=== PATIENT | female | born 2000 | race Caucasian/White ===

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

== ENCOUNTER 2021-07-25 14:01 | Emergency (ER) | payer MEDICAID ==
[~2021-07-25] VITALS: Ht 165.1 cm; Wt 111.0 kg
[~2021-07-25 14:01] MED LIST changes: +AZIT250T12 PO; +IBUP-1780 PO; -SULF1TAB35 PO; +SULF1TAB38 PO
[2021-07-25] MEDS ORDERED: ONDANSETRON 4 MG (ZOFRAN) ORAL DISSOLVE TAB PO STA (14:09)
[2021-07-25] MEDS ORDERED: morphine INJ 10 MG/ML 1ML (SYR OR VIAL) IM STA (14:09)
[2021-07-25] MEDS ORDERED: SULF1TAB38 PO (15:04)
--- NOTE | 2021-07-25 15:04 | ED General ---
General Chief Complaint: Skin/Wound Problems Stated Complaint: LT ARMPIT CYST Nursing Triage Note: PT AMBULATE TO ROOM FS WITH C/O CYST ON LEFT AXILLARY Source of Information: Caregiver History of Present Illness Date Seen by Provider: Jul 25, 2021 Time Seen by Provider: 14:45 Initial Comments Patient is a 21-year-old female who presents with recurrent soft tissue boil of her left axilla is starting 7 days ago. Boil started to drain spontaneously last evening. She has been seen in the ED before for abscesses in the same location. She is not diabetic. She has no other symptoms or complaints. Timing/Duration: 1 Week Severity: Mild Modifying Factors: improves with Other Associated Systoms: Other Allergies and Home Medications Allergies Coded Allergies: Penicillins (Verified Allergy, Unknown, 04/25/20) Patient Home Medication List Home Medication List Reviewed: Yes Azithromycin (Azithromycin) 250 Mg Tablet, 250 MG PO UD Prescribed by: JOAQUÍN YORK on 12/07/20 1257 Buspirone HCl (Buspirone HCl) 10 Mg Tablet, 10 MG PO BID, (Reported) Entered as Reported by: HARRY SHERIDAN on 06/23/162250 Cephalexin (Keflex) 500 Mg Capsule, 500 MG PO BID Prescribed by: THAI COOPER on 04/25/20 232 Clonazepam (Klonopin) 0.5 Mg Tablet, 0.5 MG PO BID, (Reported) Entered as Reported by: HARRY SHERIDAN on 06/23/162234 Clonidine HCl (Clonidine HCl) 0.2 Mg Tablet, 0.2 MG PO HS, (Reported) Entered as Reported by: HARRY SHERIDAN on 06/23/162234 Dextroamphetamine/Amphetamine (Adderall Xr 30 mg Capsule) 30 Mg Cap.er.24h, 30 MG PO DAILY, (Reported) Entered as Reported by: HARRY SHERIDAN on 06/23/162234 Divalproex Sodium (Depakote ER) 500 Mg Tab.er.24h, 1,000 MG PO HS, (Reported) Entered as Reported by: HARRY SHERIDAN on 06/23/162234 Ibuprofen (Ibuprofen) 600 Mg Tablet, 600 MG PO Q8H PRN for PAIN-MILD Prescribed by: JOAQUÍN YORK on 09/24/19 1554 Ibuprofen (Ibuprofen) 800 Mg Tablet, 800 MG PO Q8H PRN for PAIN Prescribed by: JOAQUÍN YORK on 12/07/20 1257 Risperidone (Risperidone) 0.5 Mg Tablet, 0.5 MG PO BID, (Reported) Entered as Reported by: HARRY SHERIDAN on 06/23/16 2251 Sulfamethoxazole/Trimethoprim (Bactrim Ds Tablet) 1 Each Tablet, 1 EACH PO BID Prescribed by: JOAQUÍN YORK on 09/07/20 2350 Review of Systems Review of Systems Constitutional: see HPI Skin: see HPI Past Wsdtqmd-Xezezo-Rpuqmx Hx Patient Social History Tobacco Use?: No Smoking Status: Never a Smoker Smokeless Tobacco Frequency: Never a User Use of E-Cig and/or Vaping dev: Yes E-Cig or Vaping type used: Nicotine Use of E-Cig and/or Vaping Kilo: Current Everyday User Substance use?: No Alcohol Use?: Yes Alcohol Frequency: Once in a while Pt feels they are or have been: No Immunizations Up To Date Tetanus Booster (TDap): Less than 5yrs PED Vaccines UTD: Yes Seasonal Allergies Seasonal Allergies: No Past Medical History Surgeries: Yes Cystectomy Respiratory: No Cardiac: No Neurological: Yes Seizure Disorder Reproductive Disorders: No Genitourinary: No Gastrointestinal: No Musculoskeletal: No Endocrine: No HEENT: No Cancer: No Psychosocial: Yes ADD/ADHD, Anxiety Integumentary: No Blood Disorders: No Physical Exam Vital Signs Vital Signs - First Documented 07/25/21 14:05 Temp 35.7 Pulse 98 Resp 16 B/P (MAP) 130/78 (95) O2 Delivery Room Air Capillary Refill : Less Than 3 Seconds Height, Weight, BMI Height: 5'5" Weight: 160lbs. oz. 72.808236vi; 40.00 BMI Method:Estimated General Appearance: No Apparent Distress, WD/WN Skin: Other (Left axilla, partially decompressed 2 cm skin boil with minimal drainage, no cellulitis) Focused Exam Sepsis Stage: Ruled Out Progress/Results/Core Measures Suspected Sepsis SIRS Temperature: Pulse: 98 Respiratory Rate: 16 Blood Pressure 130 /78 Mean: 95 Results/Orders My Orders Orders - LUCI WHITTEN DO Morphine Injection (Morphine Injection (07/25/21 14:09) Ondansetron Oral Dissolve Tab (Zofran (07/25/21 14:09) Urine Bedside - [facility] [place] (07/25/21 14:33) Vital Signs/I&O 07/25/21 14:05 Temp 35.7 Pulse 98 Resp 16 B/P (MAP) 130/78 (95) O2 Delivery Room Air Capillary Refill : Less Than 3 Seconds Blood Pressure Mean: 95 Departure Communication (Admissions) Morphine given in a single stab incision was made to assist with drainage. No further pus was noted to drain from abscess at this time. Will place patient on antibiotics with instruction to follow-up with PCP for surgical referral. Return precautions reviewed. Impression Primary Impression: Axillary abscess Disposition: HOME, SELF-CARE Condition: Stable Departure-Patient Inst. Decision time for Depature: 15:03 Referrals: MANPREET ARCE MD (PCP/Family) Primary Care Physician Patient Instructions: Boil (DC) Add. Discharge Instructions: Please take ibuprofen for pain and Bactrim for treatment of abscess. Apply warm compresses and follow-up with your PCP for further management and consideration of surgical referral. All discharge instructions reviewed with patient and/or family. Voiced understanding. Scripts Sulfamethoxazole/Trimethoprim (Bactrim Ds Tablet) 1 Each Tablet 1 EACH PO BID, #14 TAB Prov: LUCI WHITTEN DO 07/25/21 LUCI WHITTEN DO Jul 25, 2021 15:04
[2021-07-25 15:25] VITALS: BP 149/87
== END 2021-07-25 15:45 | disposition home or self-care (01) ==
LOC: EDUNIT# 14:01 → ER FS 14:03
DX: L02.412 Cutaneous abscess of left axilla (principal); F17.290 Nicotine dependence, other tobacco product, uncomplicated; F41.9 Anxiety disorder, unspecified; G40.909 Epilepsy, unspecified, not intractable, without status epilepticus; Z79.899 Other long term (current) drug therapy
CPT/HCPCS: 84703; 99282; 99283

== ENCOUNTER → 2021-09-24 | Outpatient (CLI) | payer MEDICAID ==
[2021-09-24 17:49] LABS: HEMATOCRIT 38 % (35-52); HEMOGLOBIN 12.1 g/dL (11.5-16.0); MEAN CORPUSCULAR HEMOGLOBIN 25 pg (25-34); MEAN CORPUSCULAR HGB CONC 32 g/dL (32-36); MEAN CORPUSCULAR VOLUME 76 fL (80-99); MEAN PLATELET VOLUME 9.4 fL (9.0-12.2); PLATELET COUNT 307 10^3/uL (130-400); WHITE BLOOD COUNT 8.6 10^3/uL (4.3-11.0)
== END ==
LOC: LAB FS 17:08
PROVIDERS: ATTEND Family Medicine
DX: Z34.91 Encounter for supervision of normal pregnancy, unspecified, first trimester (principal); Z3A.10 10 weeks gestation of pregnancy
CPT/HCPCS: 36415; 80055; 85027; 86703; 86762; 86780; 87088

== ENCOUNTER → 2021-10-23 | Outpatient (CLI) | payer MEDICAID | LOC: LAB FS 14:53 | PROVIDERS: ATTEND Family Medicine | DX: O21.9 Vomiting of pregnancy, unspecified (principal); Z3A.12 12 weeks gestation of pregnancy | CPT/HCPCS: 36415; 87491; 87591 ==

== ENCOUNTER 2021-11-04 14:08 | Emergency (ER) | payer MEDICAID ==
[~2021-11-04] VITALS: Ht 162 cm; Wt 104.0 kg
[2021-11-04] MEDS ORDERED: NS IV 1000 ML 1,000 ML IV SCH (14:45)
--- NOTE | 2021-11-04 14:47 | ED GU-Female ---
General Chief Complaint: OB < 20 WEEKS Stated Complaint: 14 WKS/VAG BLEEDING AND PAIN Nursing Triage Note: PT AMB TO RM 6 PT STATES STARTED HAVING PAIN IN L LOWER ABD 8/10. PT STATES HAS SOME VAGINAL SPOTTING STARTED THIS AM. PT IS APPROX 14 WEEKS . STARTED SUDDENLY DENIES SX OF UTI History of Present Illness Date Seen by Provider: Nov 04, 2021 Time Seen by Provider: 14:13 Initial Comments 21-year-old female reports pink vaginal discharge with urination and wiping since approximately 1130 today. The discharge has not been significant enough to require a pad and has not been bright red. She has had intermittent left flank and back pain. She currently rates her pain minimal. She has not taken Tylenol or any other medicines for her symptoms. She does report having intercourse this morning. She has had [address] Schwab she is unsure if she has had hCG levels checked, she was assured the fetus was in the uterus and they had good heartbeat. This is her third , she has had miscarriages at age 15 and 17, both approximately 12-14 weeks gestation. She is taking a vitamin daily. and Promethazine for nausea and vomiting. Per lab, patient is A- blood type. She received Rhogam with her miscarriage. Timing/Duration: this morning Severity/Quality: mild Radiation: LLQ, left flank Activities at Onset: sexual activity Prior Genitourinary Problems: none Sexual [place] History: less than 2 months ago, single partner Associated Symptoms: abdominal pain; No dysuria, No fever/chills, No loss of bladder control; lower back pain, nausea/vomiting (associated with ); No polyuria, No swelling, No syncope, No urinary frequency Allergies and Home Medications Allergies Coded Allergies: Penicillins (Verified Allergy, Unknown, 04/25/20) Patient Home Medication List Home Medication List Reviewed: Yes Azithromycin (Azithromycin) 250 Mg Tablet, 250 MG PO UD Prescribed by: JOAQUÍN YORK on 12/07/20 1257 Buspirone HCl (Buspirone HCl) 10 Mg Tablet, 10 MG PO BID, (Reported) Entered as Reported by: HARRY SHERIDAN on 06/23/16 2251 Cephalexin (Keflex) 500 Mg Capsule, 500 MG PO BID Prescribed by: THAI COOPER on 04/25/20 2321 Clonazepam (Klonopin) 0.5 Mg Tablet, 0.5 MG PO BID, (Reported) Entered as Reported by: HARRY SHERIDAN on 06/23/162234 Clonidine HCl (Clonidine HCl) 0.2 Mg Tablet, 0.2 MG PO HS, (Reported) Entered as Reported by: HARRY SHERIDAN on 06/23/162234 Dextroamphetamine/Amphetamine (Adderall Xr 30 mg Capsule) 30 Mg Cap.er.24h, 30 MG PO DAILY, (Reported) Entered as Reported by: HARRY SHERIDAN on 06/23/162234 Divalproex Sodium (Depakote ER) 500 Mg Tab.er.24h, 1,000 MG PO HS, (Reported) Entered as Reported by: HARRY SHERIDAN on 06/23/162234 Ibuprofen (Ibuprofen) 600 Mg Tablet, 600 MG PO Q8H PRN for PAIN-MILD Prescribed by: JOAQUÍN YORK on 09/24/19 1554 Ibuprofen (Ibuprofen) 800 Mg Tablet, 800 MG PO Q8H PRN for PAIN Prescribed by: JOAQUÍN YORK on 12/07/20 1257 Risperidone (Risperidone) 0.5 Mg Tablet, 0.5 MG PO BID, (Reported) Entered as Reported by: HARRY SHERIDAN on 06/23/16 2251 Sulfamethoxazole/Trimethoprim (Bactrim Ds Tablet) 1 Each Tablet, 1 EACH PO BID Prescribed by: JOAQUÍN YORK on 09/07/20 2350 Sulfamethoxazole/Trimethoprim (Bactrim Ds Tablet) 1 Each Tablet, 1 EACH PO BID Prescribed by: LUCI WHITTEN on 07/25/21 1504 Review of Systems Review of Systems Constitutional: no symptoms reported, see HPI Gastrointestinal: LLQ, abdominal pain Genitourinary: see HPI, discharge (pink), flank pain (left) : Yes Expected Date of Delivery: May 06, 2022 LMP: Jul 09, 2021 All Other Systemes Reviewed Negative Unless Noted: Yes Past Hlxbggu-Vrjwtm-Tuidxf Hx Immunizations Up To Date Tetanus Booster (TDap): Less than 5yrs PED Vaccines UTD: Yes Seasonal Allergies Seasonal Allergies: No Past Medical History Surgeries: Yes Cystectomy Respiratory: No Cardiac: No Neurological: Yes Seizure Disorder Expected Date of Delivery: May 06, 2022 Last Menstrual Period: Jul 10, 2021 Hx : 3 Hx Para: 0 Hx Total # of Abortions (Sp): 2 Reproductive Disorders: No Genitourinary: No Gastrointestinal: No Musculoskeletal: No Endocrine: No HEENT: No Cancer: No Psychosocial: Yes ADD/ADHD, Anxiety Integumentary: No Blood Disorders: No Family Medical History Reviewed and Corrections made Physical Exam Vital Signs Vital Signs - First Documented 11/04/21 14:13 Temp 35.9 Pulse 84 Resp 18 B/P (MAP) 122/62 (82) Pulse Ox 100 Capillary Refill : Less Than 3 Seconds Height, Weight, BMI Height: 5'5" Weight: 160lbs. oz. 72.474454zs; 39.00 BMI Method:Estimated General Appearance: WD/WN, no apparent distress HEENT: normal ENT inspection, TMs normal, pharynx normal Neck: non-tender, full range of motion, supple, normal inspection Cardiovascular: normal peripheral pulses, regular rate, rhythm Respiratory: chest non-tender, lungs clear, normal breath sounds Gastrointestinal: normal bowel sounds, non tender, soft Back: normal inspection, CVA tenderness (L) Neurologic/Psychiatric: no motor/sensory deficits, alert, normal mood/affect, oriented x 3 Skin: normal color, warm/dry heart tones by doppler at 150-160s. Progress/Results/Core Measures Suspected Sepsis SIRS Temperature: Pulse: 84 Respiratory Rate: 18 Laboratory Tests 11/04/21 15:50: White Blood Count 8.5 Blood Pressure 122 /62 Mean: 82 Laboratory Tests 11/04/21 15:50: Creatinine 0.62, Platelet Count 229, Total Bilirubin 0.3 Results/Orders Lab Results Laboratory Tests Test 11/04/21 15:47 11/04/21 15:50 Range/Units Urine Color YELLOW Urine Clarity SL CLOUDY Urine pH 6.5 5-9 Urine Specific [place] 1.015 L 1.016-1.022 Urine Protein NEGATIVE NEGATIVE Urine Glucose (UA) NEGATIVE NEGATIVE Urine Ketones 1+ H NEGATIVE Urine Nitrite NEGATIVE NEGATIVE Urine Bilirubin NEGATIVE NEGATIVE Urine Urobilinogen 2.0 < = 1.0 MG/DL Urine Leukocyte Esterase 1+ H NEGATIVE Urine RBC (Auto) NEGATIVE NEGATIVE Urine RBC NONE /HPF Urine WBC 2-5 /HPF Urine Squamous Epithelial Cells 2-5 /HPF Urine Crystals PRESENT H /LPF Urine Calcium Oxalate Crystals FEW H /LPF Urine Bacteria FEW H /HPF Urine Casts NONE /LPF Urine Mucus SMALL H /LPF Urine Culture Indicated YES White Blood Count 8.5 4.3-11.0 10^3/uL Red Blood Count 4.48 3.80-5.11 10^6/uL Hemoglobin 11.6 11.5-16.0 g/dL Hematocrit 35 35-52 % Mean Corpuscular Volume 78 L 80-99 fL Mean Corpuscular Hemoglobin 26 25-34 pg Mean Corpuscular Hemoglobin Concent 33 32-36 g/dL Red Cell Distribution Width 15.2 H 10.0-14.5 % Platelet Count 229 130-400 10^3/uL Mean Platelet Volume 9.3 9.0-12.2 fL Immature Granulocyte % (Auto) 0 % Neutrophils (%) (Auto) 80 H 42-75 % Lymphocytes (%) (Auto) 15 12-44 % Monocytes (%) (Auto) 4 0-12 % Eosinophils (%) (Auto) 1 0-10 % Basophils (%) (Auto) 0 0-10 % Neutrophils # (Auto) 6.7 1.8-7.8 10^3/uL Lymphocytes # (Auto) 1.3 1.0-4.0 10^3/uL Monocytes # (Auto) 0.4 0.0-1.0 10^3/uL Eosinophils # (Auto) 0.1 0.0-0.3 10^3/uL Basophils # (Auto) 0.0 0.0-0.1 10^3/uL Immature Granulocyte # (Auto) 0.0 0.0-0.1 10^3/uL Sodium Level 138 135-145 MMOL/L Potassium Level 3.6 3.6-5.0 MMOL/L Chloride Level 107 98-107 MMOL/L Carbon Dioxide Level 20 L 21-32 MMOL/L Anion Gap 11 5-14 MMOL/L Blood Urea Nitrogen 6 L 7-18 MG/DL Creatinine 0.62 0.60-1.30 MG/DL Estimat Glomerular Filtration Rate 131 BUN/Creatinine Ratio 10 Glucose Level 91 70-105 MG/DL Calcium Level 9.1 8.5-10.1 MG/DL Corrected Calcium 9.4 8.5-10.1 MG/DL Total Bilirubin 0.3 0.1-1.0 MG/DL Aspartate Amino Transf (AST/SGOT) 11 5-34 U/L Alanine Aminotransferase (ALT/SGPT) 6 0-55 U/L Alkaline Phosphatase 75 40-136 U/L Total Protein 6.4 6.4-8.2 GM/DL Albumin 3.6 3.2-4.5 GM/DL Human Chorionic Gonadotropin, Quant 19721 H <5 MIU/ML My Orders Orders - AMANDA VILLALTA Cbc With Automated Diff (11/04/21 14:21) Hcg,Quantitative (11/04/21 14:21) Comprehensive Metabolic Panel (11/04/21 14:21) Ua Culture If Indicated (11/04/21 14:21) Urine Bedside (11/04/21 14:21) Ed Iv/Invasive Line Start (11/04/21 14:37) Ns Iv 1000 Ml (Sodium Chloride 0.9%) (11/04/21 14:45) Urine Culture (11/04/21 15:47) Nitrofurantoin Capsule,Macro (Macrobid C (11/04/21 16:55) Vital Signs/I&O 11/04/21 14:13 Temp 35.9 Pulse 84 Resp 18 B/P (MAP) 122/62 (82) Pulse Ox 100 Capillary Refill : Less Than 3 Seconds Blood Pressure Mean: 82 Progress Note : Time: 14:13 Progress Note Patient seen and evaluated, will obtain labs, normal saline 1 L per IV and continue to monitor. With good heart tones, the likelihood of needing an ultrasound are slim at this time. 1500 patient unable to provide urine sample, taking ice chips. No vaginal bleeding. 1520 UA obtained. No complaints from patient, denies any vaginal bleeding with urination or wiping. 1620 discussed UA results, discharge instructions reviewed. Labs reviewed. Will be on vaginal rest until follow-up with OB doctor. Return precautions discussed. Departure Impression Primary Impression: Qualified Codes: Z3A.14 - 14 weeks gestation of Additional Impression: Spotting affecting in second trimester Disposition: 01 HOME, SELF-CARE Condition: Improved Departure-Patient Inst. Decision time for Depature: 16:15 Referrals: RANDOLPH SCHWAB MD (PCP/Family) Primary Care Physician Patient Instructions: Bleeding in Early (DC), Urinary Tract Infection, Adult (DC) Add. Discharge Instructions: Take antibiotics as prescribed, [facility]. Follow-up with Dr. Schwab if symptoms are not improving or worsen. Increase water intake, 16 ounces every 2 hours while awake. Empty bladder every 2 hours, while awake. Drink 1 cup of cranberry juice or eat one cup of fresh blueberries daily. You may take Tylenol 650 mg every 6-8 hours as needed for pain. Complete vaginal rest until follow-up with Dr. Schwab. Return to the emergency department for increased vaginal spotting, fever, or other new urgent condition. All discharge instructions reviewed with patient and/or family. Voiced understanding. Scripts Nitrofurantoin Macrocrystal (Nitrofurantoin) 100 Mg Capsule 100 MG PO BID, #14 CAP 0 Refills Prov: AMANDA VILLALTA 11/04/21 Copy Copies To 1: RANDOLPH SCHWAB MD, AMY ARNP Nov 04, 2021 14:47
[2021-11-04 15:57] LABS: BASOPHILS % (AUTO) 0 % (0-10); EOSINOPHILS # (AUTO) 0.1 10^3/uL (0.0-0.3); EOSINOPHILS % (AUTO) 1 % (0-10); HEMATOCRIT 35 % (35-52); HEMOGLOBIN 11.6 g/dL (11.5-16.0); LYMPHOCYTES # (AUTO) 1.3 10^3/uL (1.0-4.0); LYMPHOCYTES % (AUTO) 15 % (12-44); MEAN CORPUSCULAR HEMOGLOBIN 26 pg (25-34); MEAN CORPUSCULAR HGB CONC 33 g/dL (32-36); MEAN CORPUSCULAR VOLUME 78 fL (80-99); MEAN PLATELET VOLUME 9.3 fL (9.0-12.2); MONOCYTES # (AUTO) 0.4 10^3/uL (0.0-1.0); MONOCYTES % (AUTO) 4 % (0-12); NEUTROPHILS # (AUTO) 6.7 10^3/uL (1.8-7.8); NEUTROPHILS % (AUTO) 80 % (42-75); PLATELET COUNT 229 10^3/uL (130-400); WHITE BLOOD COUNT 8.5 10^3/uL (4.3-11.0)
[2021-11-04 15:59] LABS: BILIRUBIN,URINE NEGATIVE (NEGATIVE); CLARITY,URINE SL CLOUDY; COLOR,URINE YELLOW; GLUCOSE, URINE (UA) NEGATIVE (NEGATIVE); KETONES,URINE 1+ (NEGATIVE); LEUKOCYTE ESTERASE ,URINE 1+ (NEGATIVE); NITRITE,URINE NEGATIVE (NEGATIVE); PH,URINE 6.5 (5-9); PROTEIN,URINE NEGATIVE (NEGATIVE)
[2021-11-04 16:08] LABS: ALBUMIN 3.6 GM/DL (3.2-4.5)
[2021-11-04 16:08] LABS: BACTERIA,URINE FEW /HPF; CALCIUM OXALATE CRYSTALS,UR FEW /LPF
[2021-11-04 16:09] LABS: POTASSIUM 3.6 MMOL/L (3.6-5.0)
[2021-11-04 16:10] LABS: CALCIUM 9.1 MG/DL (8.5-10.1)
[2021-11-04 16:11] LABS: TOTAL PROTEIN 6.4 GM/DL (6.4-8.2)
[2021-11-04 16:13] LABS: BILIRUBIN,TOTAL 0.3 MG/DL (0.1-1.0)
[2021-11-04 16:15] LABS: CREATININE SERUM 0.62 MG/DL (0.60-1.30)
[2021-11-04] MEDS ORDERED: NITROFURANTOIN 100 MG (MACROBID) CAPSULE PO STA (16:55)
[2021-11-04 17:11] VITALS: BP 116/60
[2021-11-04] MEDS ORDERED: NITR100C PO (17:12)
== END 2021-11-04 17:11 | disposition home or self-care (01) ==
LOC: EDUNIT# 14:08 → ER 14:10
DX: O26.852 Spotting complicating pregnancy, second trimester (principal); Z3A.14 14 weeks gestation of pregnancy
CPT/HCPCS: 36415; 80053; 81000; 84702; 84703; 85025; 87088

== ENCOUNTER → 2021-11-20 | Outpatient (CLI) | payer MEDICAID ==
[~2021-11-20] MED LIST changes: +NITR100C PO
== END ==
LOC: LABNPT 14:57
PROVIDERS: ATTEND Family Medicine
DX: O23.42 Unspecified infection of urinary tract in pregnancy, second trimester (principal); Z3A.16 16 weeks gestation of pregnancy
CPT/HCPCS: 87088

== ENCOUNTER → 2022-01-10 | Outpatient (CLI) | payer MEDICAID, OTHER ==
--- NOTE | 2022-01-10 09:38 | Diagnostic Imaging Report ---
INDICATION: survey. TECHNIQUE: Multiple real-time grayscale images were obtained over the gravid uterus. There is a single live fetus in a cephalic presentation. heart rate was recorded at 149 bpm. Placenta is anterior. Amniotic fluid volume is normal. Cervical length is 5.1 cm. kidneys, bladder and stomach are unremarkable. brain is unremarkable. There is a four-chamber heart. There is a three-vessel cord with normal insertion. spine is unremarkable. FINDINGS: Biometrical measurements are as follows: Biparietal 6.12 cm, age 25 weeks 0 days. Head circumference 22.78 cm, age 24 weeks 6 days. Abdominal circumference 18.85 cm, age 23 weeks 5 days. Femur length 4.13 cm, age 23 weeks 3 days. Sonographic estimate age: 24 weeks 2 days. Sonographic estimated date of delivery: 04/30/2022. Estimated Weight: 621 gm (+/- 91 gm). LMP percentile: 56%. heart rate: 149 beats per minute. number: 1 of 1. IMPRESSION: Single live IUP 24 weeks 2 days gestational age. Estimated date of confinement sonographically is 04/30/2022. No complicating features are detected. Dictated by: Dictated on workstation # [id number]
== END ==
LOC: RAD FS 07:45
PROVIDERS: ATTEND Family Medicine
DX: Z34.92 Encounter for supervision of normal pregnancy, unspecified, second trimester (principal); Z3A.24 24 weeks gestation of pregnancy
CPT/HCPCS: 76805

== ENCOUNTER 2022-01-17 12:06 | Emergency (ER) | payer OTHER ==
[~2022-01-17] VITALS: Ht 165.1 cm; Wt 103.8 kg
--- NOTE | 2022-01-17 12:14 | ED Lower Extremity ---
General Chief Complaint: Lower Extremity Stated Complaint: 24 WKS , INJURED RT FOOT IN A FALL History of Present Illness Date Seen by Provider: Jan 17, 2022 Time Seen by Provider: 12:20 Initial Comments 22-year-old female presents with right foot pain. Patient reports that she was walking to her car when she had a misstep and fell. Patient complains of pain on the medial and lateral aspect of the right foot. No obvious deformity. Happened approximately 1-1/2 hours prior to arrival. She does hurt to bear weight. Patient is 24 weeks but suffered no other injuries when she fell. Allergies and Home Medications Allergies Coded Allergies: Penicillins (Verified Allergy, Unknown, 04/25/20) Patient Home Medication List Home Medication List Reviewed: Yes Azithromycin (Azithromycin) 250 Mg Tablet, 250 MG PO UD Prescribed by: JOAQUÍN YORK on 12/07/20 1257 Buspirone HCl (Buspirone HCl) 10 Mg Tablet, 10 MG PO BID, (Reported) Entered as Reported by: HARRY SHERIDAN on 06/23/162250 Cephalexin (Keflex) 500 Mg Capsule, 500 MG PO BID Prescribed by: THAI COOPER on 04/25/20 2321 Clonazepam (Klonopin) 0.5 Mg Tablet, 0.5 MG PO BID, (Reported) Entered as Reported by: HARRY SHERIDAN on 06/23/162234 Clonidine HCl (Clonidine HCl) 0.2 Mg Tablet, 0.2 MG PO HS, (Reported) Entered as Reported by: HARRY SHERIDAN on 06/23/162234 Dextroamphetamine/Amphetamine (Adderall Xr 30 mg Capsule) 30 Mg Cap.er.24h, 30 MG PO DAILY, (Reported) Entered as Reported by: HARRY SHERIDAN on 06/23/162234 Divalproex Sodium (Depakote ER) 500 Mg Tab.er.24h, 1,000 MG PO HS, (Reported) Entered as Reported by: HARRY SHERIDAN on 06/23/162234 Ibuprofen (Ibuprofen) 600 Mg Tablet, 600 MG PO Q8H PRN for PAIN-MILD Prescribed by: JOAQUÍN YORK on 09/24/19 1554 Ibuprofen (Ibuprofen) 800 Mg Tablet, 800 MG PO Q8H PRN for PAIN Prescribed by: JOAQUÍN YORK on 12/07/20 1257 Nitrofurantoin Macrocrystal (Nitrofurantoin) 100 Mg Capsule, 100 MG PO BID Prescribed by: AMANDA VILLALTA on 11/04/21 1712 Risperidone (Risperidone) 0.5 Mg Tablet, 0.5 MG PO BID, (Reported) Entered as Reported by: HARRY SHERIDAN on 06/23/16 2251 Sulfamethoxazole/Trimethoprim (Bactrim Ds Tablet) 1 Each Tablet, 1 EACH PO BID Prescribed by: JOAQUÍN YORK on 09/07/20 2350 Sulfamethoxazole/Trimethoprim (Bactrim Ds Tablet) 1 Each Tablet, 1 EACH PO BID Prescribed by: LUCI WHITTEN on 07/25/21 1504 Review of Systems Constitutional: No chills, No fever EENTM: no symptoms reported Respiratory: no symptoms reported Cardiovascular: no symptoms reported Gastrointestinal: no symptoms reported : Yes Musculoskeletal: see HPI Skin: see HPI Psychiatric/Neurological: No Symptoms Reported Physical Exam Vital Signs Vital Signs - First Documented 01/17/22 12:15 Temp 36.2 Pulse 89 Resp 20 B/P (MAP) 140/60 (86) Pulse Ox 100 O2 Delivery Room Air Capillary Refill : Height, Weight, BMI Height: '" Weight: lbs. oz. kg; BMI Method: General Appearance: WD/WN, no apparent distress HEENT: PERRL/EOMI Neck: full range of motion, supple Cardiovascular: normal peripheral pulses, regular rate, rhythm, no edema Respiratory: lungs clear, normal breath sounds Gastrointestinal: soft, other (Gravid appearing) Hips: bilateral hip non-tender Legs: bilateral leg non-tender Knees: bilateral knee non-tender Ankles: bilateral ankle non-tender Feet: left foot non-tender, left foot normal inspection, left foot normal range of motion; right foot soft tissue tenderness Neurologic/Psychiatric: alert, normal mood/affect, oriented x 3 Skin: normal color, warm/dry Progress/Results/Core Measures Results/Orders My Orders Orders - RODRI MASTERSON DO Foot 3 View Right (01/17/22 12:25) Vital Signs/I&O 01/17/22 12:15 Temp 36.2 Pulse 89 Resp 20 B/P (MAP) 140/60 (86) Pulse Ox 100 O2 Delivery Room Air Diagnostic Imaging Diagonstic Imaging: Xray Plain Films/CT/US/NM/MRI: other Comments No acute fracture or dislocation noted Reviewed: Reviewed by Me, Reviewed/Discussed Departure Impression Primary Impression: Sprain of foot, right Qualified Codes: S93.601A - Unspecified sprain of right foot, initial encounter Disposition: HOME, SELF-CARE Condition: Stable Departure-Patient Inst. Patient Instructions: Foot Sprain ED, Using Cold for Pain Add. Discharge Instructions: You may use Tylenol every 4-6 hours as needed for discomfort Kevin wrap as needed, please be sure to use good footwear Elevate when not ambulating Follow-up with your primary care provider in 7 to 10 days if symptoms or not improved All discharge instructions reviewed with patient and/or family. Voiced understanding. RODRI MASTERSON DO Jan 17, 2022 12:14
[2022-01-17 12:15] VITALS: BP 140/60
--- NOTE | 2022-01-17 12:46 | Diagnostic Imaging Report ---
Indication: Right foot injury and pain. Time of Exam: 12:37 PM 3 views right foot were obtained. Metatarsals and phalanges are intact. Midfoot and hindfoot are unremarkable. No fractures are seen. IMPRESSION: No acute abnormality is identified. Dictated by: Dictated on workstation # [id number]
== END 2022-01-17 12:49 | disposition home or self-care (01) ==
LOC: EDUNIT# 12:06 → ER FS 12:11
DX: O9A.212 Injury, poisoning and certain other consequences of external causes complicating pregnancy, second trimester (principal); S93.601A Unspecified sprain of right foot, initial encounter; Z28.310 Unvaccinated for COVID-19; Z3A.24 24 weeks gestation of pregnancy; W18.30XA Fall on same level, unspecified, initial encounter
CPT/HCPCS: 73630

== ENCOUNTER → 2022-02-11 | Outpatient (CLI) | payer MEDICAID ==
[2022-02-11 12:09] LABS: HEMATOCRIT 31 % (35-52); HEMOGLOBIN 10.3 g/dL (11.5-16.0); MEAN CORPUSCULAR HEMOGLOBIN 26 pg (25-34); MEAN CORPUSCULAR HGB CONC 33 g/dL (32-36); MEAN CORPUSCULAR VOLUME 80 fL (80-99); MEAN PLATELET VOLUME 10.5 fL (9.0-12.2); PLATELET COUNT 249 10^3/uL (130-400); WHITE BLOOD COUNT 8.6 10^3/uL (4.3-11.0)
== END ==
LOC: LAB FS 10:25
PROVIDERS: ATTEND Family Medicine
DX: Z34.93 Encounter for supervision of normal pregnancy, unspecified, third trimester (principal); Z3A.29 29 weeks gestation of pregnancy
CPT/HCPCS: 36415; 82950; 85027; 86780; 86850

== ENCOUNTER 2022-02-22 23:19 | Outpatient (CLI) | payer MEDICAID ==
[~2022-02-22] VITALS: Ht 162.6 cm; Wt 112.0 kg
[2022-02-22 23:38] VITALS: BP 129/86
[2022-02-22 23:39] VITALS: BP 129/86
[2022-02-22 23:42] VITALS: BP 129/86
[2022-02-22 23:42] LABS: BILIRUBIN,URINE NEGATIVE (NEGATIVE); CLARITY,URINE CLEAR; COLOR,URINE YELLOW; GLUCOSE, URINE (UA) NEGATIVE (NEGATIVE); KETONES,URINE NEGATIVE (NEGATIVE); LEUKOCYTE ESTERASE ,URINE TRACE (NEGATIVE); NITRITE,URINE NEGATIVE (NEGATIVE); PH,URINE 6.5 (5-9); PROTEIN,URINE NEGATIVE (NEGATIVE)
[2022-02-22 23:54] LABS: AMORPHOUS SEDIMENT,UR MOD AMOR URATES /LPF; BACTERIA,URINE TRACE /HPF; CALCIUM OXALATE CRYSTALS,UR RARE /LPF; RBC,URINE 0-2 /HPF; RENAL EPITHELIAL CELLS,URINE 0-2 /HPF
[2022-02-23] MEDS ORDERED: NITR-65 PO (00:10)
[2022-02-23] MEDS ORDERED: NITROFURANTOIN 100 MG (MACROBID) CAPSULE PO ONE (00:15)
[2022-02-23 00:23] VITALS: BP 121/74
--- NOTE | 2022-02-25 09:08 | Physician Query-Final Dx ---
Clinic Account Progress/Dx Physician Query: Please give diagnosis Please include # weeks gestation Date of Service Feb 22, 2022 at 23:19 WHEAT,JulFeb 25, 2022 09:08
== END 2022-02-23 00:34 | disposition home or self-care (01) ==
LOC: WSo 23:19 → LDRP 23:20 → WSo 02-23 00:34
PROVIDERS: ATTEND Family Medicine
DX: Z34.90 Encounter for supervision of normal pregnancy, unspecified, unspecified trimester (principal); Z3A.00 Weeks of gestation of pregnancy not specified
CPT/HCPCS: 81000; 87088; 99212

== ENCOUNTER 2022-03-18 17:25 | Emergency (ER) | payer MEDICAID ==
[~2022-03-18] VITALS: Ht 162.5 cm; Wt 112.0 kg
[~2022-03-18 17:25] MED LIST changes: +NITR-65 PO
--- NOTE | 2022-03-18 17:40 | ED GI ---
General Stated Complaint: VOMITTING,NAUSEA Source of Information: Patient Exam Limitations: No Limitations History of Present Illness Date Seen by Provider: Mar 18, 2022 Time Seen by Provider: 17:22 Initial Comments Patient to the ER by private conveyance from home with chief complaint for 1 day she had nausea vomiting and occasional nonproductive cough. She has not had any fevers chills diarrhea constipation. She had some Phenergan at home but did not help with her nausea today. She did take some Tylenol earlier today for her left flank pain and subsequently threw it up. She had a UTI couple weeks ago and did a course of Macrobid and felt like the symptoms got better. She does not have any dysuria or discharge. She is a G1, EDC of May 06 ([id number]) and followed by Dr Schwab. No surgical history. Last time she felt movements was earlier this morning. Allergies and Home Medications Allergies Coded Allergies: Penicillins (Verified Allergy, Unknown, 04/25/20) Patient Home Medication List Home Medication List Reviewed: Yes Nitrofurantoin Monohyd/M-Cryst (Macrobid 100 mg Capsule) 100 Mg Capsule, 1 TAB PO BID Prescribed by: BRITTNI PENN on 02/23/22 0010 Review of Systems Review of Systems Constitutional: No chills, No diaphoresis EENTM: No Blurred Vision, No Double Vision Respiratory: Denies Cough, Denies Orthopnea Cardiovascular: Denies Chest Pain, Denies Lightheadedness Gastrointestinal: Abdominal Pain; Denies Constipated, Denies Diarrhea; Nausea, Poor Fluid Intake; Denies Rectal Bleeding; Vomiting Genitourinary: Denies Burning, Denies Discharge Musculoskeletal: No back pain, No joint pain Skin: No pruritus, No rash Psychiatric/Neurological: Denies Anxiety, Denies Depressed All Other Systems Reviewed Negative Unless Noted: Yes Past Mkvflyw-Ogxsgs-Yfuwiy Hx Patient Social History Tobacco Use?: No Use of E-Cig and/or Vaping dev: No Substance use?: No Immunizations Up To Date Tetanus Booster (TDap): Less than 5yrs PED Vaccines UTD: Yes Seasonal Allergies Seasonal Allergies: No Past Medical History Surgeries: Yes Cystectomy Respiratory: No Cardiac: No Neurological: Yes Seizure Disorder Reproductive Disorders: No Genitourinary: No Gastrointestinal: No Musculoskeletal: No Endocrine: No HEENT: No Cancer: No Psychosocial: Yes ADD/ADHD, Anxiety Integumentary: No Blood Disorders: No Physical Exam Vital Signs Vital Signs - First Documented 03/18/22 17:25 Temp 36.0 Pulse 128 Resp 14 B/P (MAP) 134/88 (103) Pulse Ox 98 O2 Delivery Room Air Capillary Refill : Height/Weight/BMI Height: 5'5" Weight: 160lbs. oz. 72.163639bh; 42.36 BMI Method:Estimated General Appearance: WD/WN, mild distress HEENT: PERRL/EOMI, TMs normal, pharynx normal Neck: non-tender, full range of motion, supple, normal inspection Respiratory: lungs clear, normal breath sounds, no respiratory distress, no accessory muscle use Cardiovascular: normal peripheral pulses, regular rate, rhythm Gastrointestinal: normal bowel sounds, soft, tenderness Extremities: normal range of motion (Left upper quadrant), non-tender, normal inspection, normal capillary refill Neurologic/Psychiatric: alert, normal mood/affect, oriented x 3 Skin: normal color, warm/dry Progress/Results/Core Measures Results/Orders My Orders Orders - TEQUILA AGUILAR Ua Culture If Indicated (03/18/22 17:27) Covid 19 Inhouse Test (03/18/22 17:27) Influenza A And B By Pcr (03/18/22 17:27) Urine Bedside (03/18/22 17:27) Ondansetron Injection (Zofran Injectio (03/18/22 17:45) Cbc With Automated Diff (03/18/22 17:35) Comprehensive Metabolic Panel (03/18/22 17:35) Crp Fs (03/18/22 17:35) Ed Iv/Invasive Line Start (03/18/22 17:35) Lactated Ringers (Lr 1000 Ml Iv Solution (03/18/22 17:45) Acetaminophen Tablet (Tylenol Tablet) (03/18/22 17:45) Antacid Suspension (Mylanta Suspension (03/18/22 17:45) Medications Given in ED Current Medications Medications Dose Ordered Sig/Bonnie Route Start Time Stop Time Status Last Admin Dose Admin Acetaminophen 1,000 mg ONCE ONCE PO 03/18/22 17:45 03/18/22 17:46 DC 03/18/22 17:50 1,000 MG Al Hydrox/Mg Hydrox/Simethicone 30 ml ONCE ONCE PO 03/18/22 17:45 03/18/22 17:46 DC 03/18/22 17:50 30 ML Lactated Ringer's 1,000 ml @ 0 mls/hr Q0M ONCE IV 03/18/22 17:45 03/18/22 17:46 DC 03/18/22 17:47 999 MLS/HR Ondansetron HCl 4 mg ONCE ONCE IVP 03/18/22 17:45 03/18/22 17:46 DC 03/18/22 17:47 4 MG Vital Signs/I&O 03/18/22 17:25 Temp 36.0 Pulse 128 Resp 14 B/P (MAP) 134/88 (103) Pulse Ox 98 O2 Delivery Room Air Progress Progress Note #1: Time: 17:44 Progress Note Viral syndrome, gastroenteritis, gastritis? We will give her some Zofran IV some fluids since she is tachycardic get a heart tone and give her some Tylenol and Maalox. Check a urine. Progress Note #2: Time: 19:21 Progress Note After the antacids the patient's pain is gone. After the nausea medicine her nausea is gone. We did discuss the risks, benefits and alternatives to using Paxlovid and that it is an emergency use authorization by the FDA and she has at this time declined to use it as her symptoms are improved. Her heart rate has returned to normal after the fluids. She is ready to go home. We will provide her with some ondansetron and return precautions. Departure Impression Primary Impression: COVID-19 Additional Impression: Qualified Codes: Z3A.30 - 30 weeks gestation of Disposition: 01 HOME, SELF-CARE Condition: Improved Departure-Patient Inst. Decision time for Depature: 19:22 Referrals: RANDOLPH SCHWAB MD (PCP/Family) Primary Care Physician Patient Instructions: COVID-19 (DC) Add. Discharge Instructions: Drink plenty of fluids. If you are having nausea and/or vomiting then take 1 tablet of Zofran under the tongue every 6 hours as needed. If you are still having significant symptoms 30 to 45 minutes later then take a second tablet. Return to the ER for intractable vomiting, dehydration or other worrisome symptoms. If you are having abdominal pain try antacids such as Maalox, Tums, Rolaids, Gaviscon etc. Tylenol 1000 mg every 8 hours needed for pain. Vitamin B6 25 mg every 6 hours needed for nausea or vomiting. Scripts Ondansetron (Ondansetron Odt) 4 Mg Tab.rapdis 4-8 MG PO Q6H PRN for NAUSEA/VOMITING, #15 TAB 0 Refills Prov: TEQUILA AGUILAR 03/18/22 Copy Copies To 1: RANDOLPH SCHWAB MD, TITUS J Mar 18, 2022 17:40
[2022-03-18] MEDS ORDERED: LACTATED RINGERS 1,000 ML IV ONE (17:45)
[2022-03-18] MEDS ORDERED: ANTACID SUSP 30 ML UDC (MYLANTA) PO ONE (17:45)
[2022-03-18] MEDS ORDERED: ACETAMINOPHEN 500 MG TAB (TYLENOL) PO ONE (17:45)
[2022-03-18] MEDS ORDERED: ONDANSETRON 4 MG/2 ML (SDV) Z0FRAN IVP ONE (17:45)
[2022-03-18 17:51] LABS: BASOPHILS % (AUTO) 0 % (0-10); EOSINOPHILS % (AUTO) 1 % (0-10); HEMATOCRIT 31 % (35-52); HEMOGLOBIN 10.1 g/dL (11.5-16.0); LYMPHOCYTES # (AUTO) 0.7 10^3/uL (1.0-4.0); LYMPHOCYTES % (AUTO) 17 % (12-44); MEAN CORPUSCULAR HEMOGLOBIN 25 pg (25-34); MEAN CORPUSCULAR HGB CONC 33 g/dL (32-36); MEAN CORPUSCULAR VOLUME 77 fL (80-99); MEAN PLATELET VOLUME 9.9 fL (9.0-12.2); MONOCYTES # (AUTO) 0.4 10^3/uL (0.0-1.0); MONOCYTES % (AUTO) 10 % (0-12); NEUTROPHILS # (AUTO) 2.9 10^3/uL (1.8-7.8); NEUTROPHILS % (AUTO) 72 % (42-75); PLATELET COUNT 229 10^3/uL (130-400)
[2022-03-18] MEDS ORDERED: ONDA4TAB11 PO (19:23)
[2022-03-18 19:29] VITALS: BP 129/82
[2022-03-18 20:49] LABS: ALBUMIN 3.8 GM/DL (3.2-4.5); BILIRUBIN,TOTAL 0.3 MG/DL (0.1-1.0); CALCIUM 9.1 MG/DL (8.5-10.1); CREATININE SERUM 0.54 MG/DL (0.60-1.30); POTASSIUM 3.6 MMOL/L (3.6-5.0)
[2022-03-18 20:52] LABS: BACTERIA,URINE TRACE /HPF; BILIRUBIN,URINE NEGATIVE (NEGATIVE); CLARITY,URINE SLT CLOUDY; COLOR,URINE YELLOW; GLUCOSE, URINE (UA) NEGATIVE (NEGATIVE); KETONES,URINE 3+ (NEGATIVE); LEUKOCYTE ESTERASE ,URINE TRACE (NEGATIVE); NITRITE,URINE NEGATIVE (NEGATIVE); PH,URINE 6.5 (5-9); PROTEIN,URINE NEGATIVE (NEGATIVE)
== END 2022-03-18 19:30 | disposition home or self-care (01) ==
LOC: EDUNIT# 17:25 → ER FS 17:27
DX: O98.513 Other viral diseases complicating pregnancy, third trimester (principal); U07.1 COVID-19; Z28.310 Unvaccinated for COVID-19; Z3A.33 33 weeks gestation of pregnancy
CPT/HCPCS: 36415; 80053; 81000; 85025; 86141; 87088; 87636

== ENCOUNTER 2022-03-24 19:34 | Outpatient (CLI) | payer MEDICAID ==
[~2022-03-24] VITALS: Ht 162.6 cm; Wt 114.0 kg
[~2022-03-24 19:34] MED LIST changes: +ONDA4TAB11 PO
[2022-03-24 20:07] LABS: BILIRUBIN,URINE NEGATIVE (NEGATIVE); CLARITY,URINE CLEAR; COLOR,URINE YELLOW; GLUCOSE, URINE (UA) NEGATIVE (NEGATIVE); KETONES,URINE NEGATIVE (NEGATIVE); LEUKOCYTE ESTERASE ,URINE 1+ (NEGATIVE); NITRITE,URINE NEGATIVE (NEGATIVE); PROTEIN,URINE NEGATIVE (NEGATIVE)
[2022-03-24 20:09] VITALS: BP 116/76
[2022-03-24 20:10] VITALS: BP 116/76
[2022-03-24 20:19] LABS: BACTERIA,URINE FEW /HPF
--- NOTE | 2022-03-26 08:32 | Physician Query-Final Dx ---
ARELI03/26/22 0832: Clinic Account Progress/Dx Physician Query: Please give diagnosis Please include # weeks gestation Date of Service Mar 24, 2022 at 19:34 SUSI MOHR DO 03/26/22 0846: Clinic Account Progress/Dx DIAGNOSIS: Diagnosis 33 week IUP Pelvic pressure Uncomplicated UTI ARELI,JulMar 26, 2022 08:32 SUSI MOHR DO Mar 26, 2022 08:46
== END 2022-03-24 20:52 ==
LOC: LDRP 19:34 → WSo 19:34
PROVIDERS: ATTEND Obstetrics & Gynecology
DX: O23.43 Unspecified infection of urinary tract in pregnancy, third trimester (principal); Z3A.33 33 weeks gestation of pregnancy
CPT/HCPCS: 81000; 87088

== ENCOUNTER 2022-04-02 04:13 | Outpatient (CLI) | payer MEDICAID ==
[~2022-04-02] VITALS: Ht 162.6 cm; Wt 115.4 kg
[2022-04-02] MEDS ORDERED: PROM50TA3 PO (04:33)
[2022-04-02] MEDS ORDERED: PREN-142 PO (04:33)
[2022-04-02] MEDS ORDERED: FERR-84 PO (04:33)
[2022-04-02 04:39] VITALS: BP 136/84
[2022-04-02] MEDS ORDERED: ACETAMINOPHEN 500 MG TAB (TYLENOL) ONE (04:57)
[2022-04-02 05:00] VITALS: BP 119/71
[2022-04-02] MEDS ORDERED: ACETAMINOPHEN 500 MG TAB (TYLENOL) PO PRN (05:00)
[2022-04-02 05:51] LABS: BACTERIA,URINE NEGATIVE /HPF; BILIRUBIN,URINE NEGATIVE (NEGATIVE); CLARITY,URINE CLEAR; COLOR,URINE YELLOW; GLUCOSE, URINE (UA) NEGATIVE (NEGATIVE); KETONES,URINE NEGATIVE (NEGATIVE); LEUKOCYTE ESTERASE ,URINE TRACE (NEGATIVE); NITRITE,URINE NEGATIVE (NEGATIVE); PH,URINE 6.5 (5-9); PROTEIN,URINE NEGATIVE (NEGATIVE); SQUAMOUS EPITHELIAL CELL,UR RARE /HPF; WBC,URINE RARE /HPF
[2022-04-02 07:45] VITALS: BP 126/56
--- NOTE | 2022-04-03 08:03 | Physician Query-Final Dx ---
ARELI,04/03/22 0803: Clinic Account Progress/Dx Physician Query: Please give diagnosis Please include # weeks gestation Date of Service Apr 02, 2022 at 04:13 REVA REYEZ MD 04/03/22 1538: Clinic Account Progress/Dx DIAGNOSIS: Diagnosis 35 weeks gestation with Acute abdominal trauma in /Placental abruption ,JulApr 03, 2022 08:03 REVA REYEZ MD Apr 03, 2022 15:38
== END 2022-04-02 09:07 | disposition home or self-care (01) ==
LOC: WSo 04:13 → LDRP 04:16 → WSo 09:07
PROVIDERS: ATTEND Obstetrics & Gynecology
DX: O9A.213 Injury, poisoning and certain other consequences of external causes complicating pregnancy, third trimester (principal); Z3A.35 35 weeks gestation of pregnancy
CPT/HCPCS: 81000; G0463; 99213

== ENCOUNTER → 2022-04-04 | Outpatient (CLI) | payer MEDICAID ==
[~2022-04-04] MED LIST changes: +FERR-84 PO; +PREN-142 PO; +PROM50TA3 PO
== END ==
LOC: LABNPT 14:48
PROVIDERS: ATTEND Family Medicine
DX: Z34.92 Encounter for supervision of normal pregnancy, unspecified, second trimester (principal)
CPT/HCPCS: 87081

== ENCOUNTER 2022-04-12 19:08 | Outpatient (CLI) | payer MEDICAID ==
[~2022-04-12] VITALS: Ht 162.6 cm; Wt 116.8 kg
[2022-04-12 19:55] VITALS: BP 132/77
[2022-04-12] MEDS ORDERED: D5 LR IV SOLUTION 1,000 ML IV SCH (20:00)
[2022-04-12] MEDS ORDERED: D5 LR IV SOLUTION 1,000 ML IV ONE (20:01)
[2022-04-12 20:10] LABS: BILIRUBIN,URINE NEGATIVE (NEGATIVE); CLARITY,URINE CLEAR; COLOR,URINE YELLOW; GLUCOSE, URINE (UA) NEGATIVE (NEGATIVE); KETONES,URINE NEGATIVE (NEGATIVE); LEUKOCYTE ESTERASE ,URINE 2+ (NEGATIVE); NITRITE,URINE NEGATIVE (NEGATIVE); PROTEIN,URINE NEGATIVE (NEGATIVE)
[2022-04-12 20:18] LABS: BACTERIA,URINE FEW /HPF; YEAST,URINE FEW /HPF
--- NOTE | 2022-04-15 08:29 | Physician Query-Final Dx ---
Clinic Account Progress/Dx Physician Query: Please give diagnosis Please include # weeks gestation Date of Service Apr 12, 2022 at 19:08 ARELI,JulApr 15, 2022 08:29
== END 2022-04-12 22:22 | disposition home or self-care (01) ==
LOC: WSo 19:08 → LDRP 19:08 → WSo 22:22
PROVIDERS: ATTEND Obstetrics & Gynecology
DX: O42.913 Preterm premature rupture of membranes, unspecified as to length of time between rupture and onset of labor, third trimester (principal); Z3A.36 36 weeks gestation of pregnancy
CPT/HCPCS: 81000; 87088

== ENCOUNTER 2022-04-20 00:52 | Inpatient (IN) | payer MEDICAID ==
[2022-04-20] VITALS (51 sets, daily range): BP systolic 113–182; BP diastolic 59–98
[~2022-04-20] VITALS: Ht 162.6 cm; Wt 114.4 kg
[2022-04-20 01:10] LABS: BILIRUBIN,URINE NEGATIVE (NEGATIVE); CLARITY,URINE CLEAR; COLOR,URINE YELLOW; GLUCOSE, URINE (UA) NEGATIVE (NEGATIVE); KETONES,URINE NEGATIVE (NEGATIVE); LEUKOCYTE ESTERASE ,URINE NEGATIVE (NEGATIVE); NITRITE,URINE NEGATIVE (NEGATIVE); PROTEIN,URINE NEGATIVE (NEGATIVE)
[2022-04-20 01:17] LABS: BACTERIA,URINE TRACE /HPF; WBC,URINE 0-2 /HPF
[2022-04-20] MEDS ORDERED: LIDOCAINE/EPI 2% 1:200,00 (XYLOCAINE) 10 ML VIAL INJ PRN (01:30)
[2022-04-20] MEDS ORDERED: OXYTOCIN PRE-MIX DRIP 500 ML IV SCH (01:30)
[2022-04-20] MEDS ORDERED: D5 LR IV SOLUTION 1,000 ML IV SCH (01:30)
[2022-04-20 03:35] LABS: BASOPHILS % (AUTO) 0 % (0-10); EOSINOPHILS # (AUTO) 0.1 10^3/uL (0.0-0.3); EOSINOPHILS % (AUTO) 1 % (0-10); HEMATOCRIT 31 % (35-52); HEMOGLOBIN 9.4 g/dL (11.5-16.0); LYMPHOCYTES # (AUTO) 1.3 10^3/uL (1.0-4.0); LYMPHOCYTES % (AUTO) 14 % (12-44); MEAN CORPUSCULAR HEMOGLOBIN 24 pg (25-34); MEAN CORPUSCULAR HGB CONC 31 g/dL (32-36); MEAN CORPUSCULAR VOLUME 76 fL (80-99); MEAN PLATELET VOLUME 10.2 fL (9.0-12.2); MONOCYTES # (AUTO) 0.5 10^3/uL (0.0-1.0); MONOCYTES % (AUTO) 5 % (0-12); NEUTROPHILS # (AUTO) 7.7 10^3/uL (1.8-7.8); NEUTROPHILS % (AUTO) 80 % (42-75); PLATELET COUNT 233 10^3/uL (130-400); WHITE BLOOD COUNT 9.6 10^3/uL (4.3-11.0)
[2022-04-20] MEDS ORDERED: fentaNYL 2 mcg/ml BUPIVA 0.125 100 ML ONE (04:40)
[2022-04-20] MEDS ORDERED: diphenhydrAMINE 50 MG/ML INJ (BENADRYL) IV PRN (05:15)
[2022-04-20] MEDS ORDERED: ONDANSETRON 4 MG/2 ML (SDV) Z0FRAN IV PRN (05:15)
[2022-04-20] MEDS ORDERED: fentaNYL 2 mcg/ml BUPIVA 0.125 100 ML EPI SCH (05:15)
[2022-04-20] MEDS ORDERED: LACTATED RINGERS 1,000 ML IV SCH (05:15)
[2022-04-20] MEDS ORDERED: NALOXONE 0.4 MG/ML 1 ML (NARCAN) VIAL IV PRN ×2 (05:15→11:30)
[2022-04-20] MEDS ORDERED: BUPIVACAINE 0.25% 30 ML (SENSORCAINE) VIAL ONE (05:16)
[2022-04-20] MEDS ORDERED: fentaNYL INJ 100 MCG/2 ML AMP ONE (05:16)
[2022-04-20] MEDS ORDERED: CATHETER FLUSH 10 ML SYR IV SCH ×2 (06:00→14:00)
[2022-04-20] MEDS ORDERED: FLU QUADRIvalent (6 months+) 60 mcg/0.5 ml 2022-23 (Fluzone) IM ONE (08:15)
[2022-04-20] MEDS: OXYTOCIN PRE-MIX DRIP 500 ML IV SCH ×2 (10:56→11:30)
[2022-04-20] MEDS ORDERED: MEASLES,MUMPS,RUBELLA 1 EA INJ SQ ONE (11:30)
[2022-04-20] MEDS ORDERED: TETANUS,DIPTH,PERTUSS P/F (BOOSTRIX) 0.5 ML VIAL IM ONE (11:30)
--- NOTE | 2022-04-20 11:30 | OB Labor & Delivery Record ---
L&D History Date of Service Date of Service: Apr 20, 2022 History Expected Date of Delivery: May 06, 2022 Gestational Age in Weeks: 37 Complications Events: Routine care Operative Indications (Cesarea: N/A-Vaginal Delivery Intrapartal Events: None L&D Stage1 Stage One Onset of Labor - Date: Apr 20, 2022 Monitors and Tracing Monitor Mode: External Heart Rate: 135 Station: -3 Detention Variability: Average (6-10) Short Term Variability: Present Presentation: Vertex Vital Signs VS - Last 72 Hours, by Label 04/20/22 04/20/22 04/20/22 04/20/22 01:11 05:10 05:42 06:30 Temp 36.4 36.4 36.0 36.3 Pulse 93 77 86 105 Resp 20 18 B/P (MAP) 125/77 (93) 153/77 (102) 149/75 (99) Pulse Ox 100 100 99 98 O2 Delivery Room Air Room Air Room Air Room Air 04/20/22 04/20/22 04/20/22 04/20/22 06:35 06:40 06:45 06:50 Pulse 108 104 76 100 B/P (MAP) 137/67 (90) 145/71 (95) 138/76 (96) 155/76 (102) Pulse Ox 98 99 98 100 O2 Delivery Room Air Room Air Room Air Room Air 04/20/22 04/20/22 06:55 07:00 Pulse 95 96 B/P (MAP) 155/69 (97) 152/75 (100) Pulse Ox 100 100 O2 Delivery Room Air Room Air Rupture of Membranes Spontaneous Ruture of Membrane: Yes Amniotic Membrane Rupture Time: 2350 Amniotic Membrane Fluid Desc.: Clear Vaginal Bleeding Description: Normal Show Progress/Notes Patient admitted SROM and 1 cm dialated early this AM. She was started on Pitocin augmentation shortly after due to dysfunctional contraction pattern. She received and epidural and progressed to complete and + 2 station. L&D Stage2 Stage Two Stage II Date: Apr 20, 2022 Monitors and Tracing Monitor Mode: External Heart Rate: 135 Monitor Accelerations: Uniform Monitor Decelerations: Variable Air Turning Machine Feeder Variability: Average (6-10) Short Term Variability: Present Position: Right Occiput Anterior Presentation: Vertex Cord Descript/Complications Cord Vessel Description: 3 Vessels Complications Ineffective maternal pushing noted, maternal legs tightening, and buttocks coming off of table and pushing with legs and straightening with legs. This was coached for over an hour with no improvement in pushing nor progress therefore low vacuum extraction was done. Kiwi cup placed over flexion point on maternal vertex. 500 mmHg applied using hand piece on next maternal push RML is done and head is delivered with gentle extension, where suction is released. Remainder of infant delivered without difficulty. Delivery Type Delivery Method: Spontaneous Vaginal Anterior Shoulder: Left Episiotomy/Perineal Laceration Laceraction(s)/Extensions: Yes Episiotomy Description: Right Mediolateral Degree (describe repair) RML repaired using 3-0 rapide and 2-0 vicryl suture Condition of Infant Delivery 1 minute Comment: 8 5 minute Comment: 9 Notes Live female infant weight 7lbs 6 oz. Condition of Condition of : Living Exam: No Observed Abnormalities Resuscitation Resuscitation: N/A - Spontaneous Resp L&D Stage3 Stage Three Stage III Date: Apr 20, 2022 Pictocin Pitocin ml/hr: 6 Pitocin Administration Comment: 30 mu wide open after delivery of placenta Placenta Delivery Placenta Delivery: Spontaneous Delivery Summary Summary Estimated blood loss (mL): 400 Attending at delivery: Susi Mohr DO Condition of Delivery Examined: Cervix Examined, Uterus Explored Post Hemorrhage: No Condition of Mother stable Condition of (s) stable SUSI MOHR DO Apr 20, 2022 11:30
--- NOTE | 2022-04-20 11:33 | History & Physical-OB ---
OB - Chief Complaint & HPI Date/Time Date of Admission: Date of Admission: Apr 20, 2022 at 01:30 Date seen by a Provider: Apr 20, 2022 Time Seen by a Provider: 09:35 Chief Complaint/History OB-Reason for Admission/Chief: Onset of Labor Hx : 1 Hx Para: 0 Expected Date of Delivery: May 06, 2022 Gestational Age in Weeks: 37 Gestational Age in Days: 5 Admission Nurse Assessment Rev: Yes Allergies and Home Medications Allergies Coded Allergies: Penicillins (Verified Allergy, Unknown, 04/25/20) amoxicillin (Verified Allergy, Unknown, 04/20/22) Patient Home Medication List Home Medication List Reviewed: Yes Vit No.124/Iron/FA ( Vitamin Tablet) 27 Mg Iron-800 Mcg Tablet, 1 EACH PO DAILY, (Reported) Entered as Reported by: LINDA BARTLETT on 04/02/22432 Last Action: Reviewed Promethazine HCl (Promethazine HCl) 50 Mg Tablet, 50 MG PO PRN, (Reported) Entered as Reported by: LINDA BARTLETT on 04/02/22432 Last Action: Reviewed Discontinued Medications Ferrous Sulfate (Iron) 325 Mg (65 Mg Iron) Tablet, 325 MG PO DAILY, (Reported) Discontinued Reason: No Longer Taking Entered as Reported by: LINDA BARTLETT on 04/02/22432 Last Action: Discontinued OB - History Hx of Present Care: Yes Ultrasounds: Normal mid trimester US Obstetrical Complications: None Medical Complications: None Delivery History Hx Blood Disorders: No Patient Past Medical History n/a Social History/Family History 2nd Hand Smoke Exposure: No Immunizations Influenza Vaccine Up-to-Date: No; Not Current Hepatitis B: Yes Tetanus Booster (TDap): Less than 5yrs OB - Admission Exam Physical Exam Vitals: Vital Signs 04/20/22 04/20/22 04/20/22 05:42 06:30 07:00 Temp 36.3 Pulse 96 Resp 18 B/P (MAP) 152/75 (100) Pulse Ox 100 O2 Delivery Room Air HEENT: NCAT Heart: Rhythm Normal Lungs: Clear Abdomen: Gravid Extremities: Normal Reflexes: Normal Cervical Dilatation: 1cm Effacement: 75% Station: -1 Membranes: Ruptured Amniotic Fluid: Clear Heart Rate: 130's Accelerations: Accelerations Present Decelerations: No Decelerations Short Term Variability: Present Draw Fire Operator Variability: Average (6-25) Contractions on Admission: 6-10 Minutes Apart Intensity: Mild Labs Laboratory Tests Test 04/20/22 01:05 04/20/22 03:24 Range/Units Urine Color YELLOW Urine Clarity CLEAR Urine pH 7.0 5-9 Urine Specific [place] 1.010 L 1.016-1.022 Urine Protein NEGATIVE NEGATIVE Urine Glucose (UA) NEGATIVE NEGATIVE Urine Ketones NEGATIVE NEGATIVE Urine Nitrite NEGATIVE NEGATIVE Urine Bilirubin NEGATIVE NEGATIVE Urine Urobilinogen 1.0 < = 1.0 MG/DL Urine Leukocyte Esterase NEGATIVE NEGATIVE Urine RBC (Auto) TRACE-I H NEGATIVE Urine RBC 2-5 H /HPF Urine WBC 0-2 /HPF Urine Squamous Epithelial Cells 5-10 /HPF Urine Crystals NONE /LPF Urine Bacteria TRACE /HPF Urine Casts NONE /LPF Urine Mucus SMALL H /LPF Urine Culture Indicated NO White Blood Count 9.6 4.3-11.0 10^3/uL Red Blood Count 3.99 3.80-5.11 10^6/uL Hemoglobin 9.4 L 11.5-16.0 g/dL Hematocrit 31 L 35-52 % Mean Corpuscular Volume 76 L 80-99 fL Mean Corpuscular Hemoglobin 24 L 25-34 pg Mean Corpuscular Hemoglobin Concent 31 L 32-36 g/dL Red Cell Distribution Width 14.5 10.0-14.5 % Platelet Count 233 130-400 10^3/uL Mean Platelet Volume 10.2 9.0-12.2 fL Immature Granulocyte % (Auto) 0 % Neutrophils (%) (Auto) 80 H 42-75 % Lymphocytes (%) (Auto) 14 12-44 % Monocytes (%) (Auto) 5 0-12 % Eosinophils (%) (Auto) 1 0-10 % Basophils (%) (Auto) 0 0-10 % Neutrophils # (Auto) 7.7 1.8-7.8 10^3/uL Lymphocytes # (Auto) 1.3 1.0-4.0 10^3/uL Monocytes # (Auto) 0.5 0.0-1.0 10^3/uL Eosinophils # (Auto) 0.1 0.0-0.3 10^3/uL Basophils # (Auto) 0.0 0.0-0.1 10^3/uL Immature Granulocyte # (Auto) 0.0 0.0-0.1 10^3/uL OB - Assessment/Plan/Diagnosis Assessment Assessment: active labor, rupture of membranes Admission Dx 22 y o @ 37.5 weeks Active labor SROM GBS neg Admission Status: Inpatient Order (span 2 midnights) Reason for Inpatient Admission: active labor at term Plan Plan: Expectant Management SUSI MOHR DO Apr 20, 2022 11:33
--- NOTE | 2022-04-20 11:33 | Discharge Inst-Women's Service ---
Discharge Inst-Women's Serv Depart Medication/Instructions New, Converted or Re-Newed RX: Transmitted to Pharmacy Final Diagnosis PPD 1 VAVD Problems Reviewed?: Yes Consults/Follow Up Additional Follow Up: Yes Orders/Referrals Dr. Mohr in 6 weeks Activity Activity: Activity as Tolerated Driving Instructions: No Driving for 1 Week NO SMOKING: NO SMOKING Nothing Inside Vagina: No Douching, No Bache, No Tampons Diet Discharge Diet: No Restrictions Symptoms to Report to : Bleeding Excessive, Pain Increased, Fever Over 101 Degrees F, Vaginal Bleeding Increase, Questions/Concerns For Any Problems or Questions: Contact Your Physician SUSI MOHR DO Apr 20, 2022 11:33
[2022-04-20] MEDS ORDERED: BENZ78AE5 TP (11:35)
[2022-04-20] MEDS ORDERED: FERR325T24 PO (11:35)
[2022-04-20] MEDS ORDERED: DIBU30OI TOP (11:35)
[2022-04-20] MEDS ORDERED: IBUP-844 PO (11:35)
[2022-04-20] MEDS ORDERED: DOCU100C37 PO (11:35)
[2022-04-20] MEDS ORDERED: ACHD5005 PO (11:35)
[2022-04-20] MEDS: IBUPROFEN 600 MG (MOTRIN) TAB PO SCH ×2 (12:24→18:45)
[2022-04-20] MEDS: DIBUCAINE 1% OINTMENT 30 GM TUBE TOP PRN (12:51)
[2022-04-20] MEDS: WITCH HAZEL(TUCKS) 40 EA JAR TOP PRN (12:51)
[2022-04-20] MEDS: BENZOCAINE/MENTHOL (DERMOPLAST) 56 ML CAN TP PRN (12:51)
[2022-04-20] MEDS: DOCUSATE SODIUM 100 MG (COLACE) CAP PO SCH (21:58)
[2022-04-21 00:45] VITALS: BP 109/59
[2022-04-21] MEDS: IBUPROFEN 600 MG (MOTRIN) TAB PO SCH ×3 (00:45→12:32)
[2022-04-21] MEDS: PRENATAL VITAMIN 1 EA TAB PO SCH ×2 (06:54→09:18)
[2022-04-21 06:55] VITALS: BP 119/74
[2022-04-21 09:00] VITALS: BP 127/68
[2022-04-21] MEDS ORDERED: FERROUS SULF 325 MG (IRON) TAB PO SCH (09:00)
[2022-04-21] MEDS: HYDROcodone/APAP 5 MG/325 MG (LORTAB) TAB PO PRN ×2 (09:17→14:11)
[2022-04-21] MEDS: DOCUSATE SODIUM 100 MG (COLACE) CAP PO SCH (09:18)
[2022-04-21] MEDS: WITCH HAZEL(TUCKS) 40 EA JAR TOP PRN (09:18)
[2022-04-21 09:31] LABS: BASOPHILS % (AUTO) 0 % (0-10); EOSINOPHILS # (AUTO) 0.2 10^3/uL (0.0-0.3); EOSINOPHILS % (AUTO) 2 % (0-10); HEMATOCRIT 24 % (35-52); HEMOGLOBIN 7.4 g/dL (11.5-16.0); LYMPHOCYTES # (AUTO) 1.3 10^3/uL (1.0-4.0); LYMPHOCYTES % (AUTO) 11 % (12-44); MEAN CORPUSCULAR HEMOGLOBIN 24 pg (25-34); MEAN CORPUSCULAR HGB CONC 30 g/dL (32-36); MEAN CORPUSCULAR VOLUME 78 fL (80-99); MEAN PLATELET VOLUME 10.6 fL (9.0-12.2); MONOCYTES # (AUTO) 0.5 10^3/uL (0.0-1.0); MONOCYTES % (AUTO) 5 % (0-12); NEUTROPHILS # (AUTO) 9.5 10^3/uL (1.8-7.8); NEUTROPHILS % (AUTO) 82 % (42-75); PLATELET COUNT 205 10^3/uL (130-400); WHITE BLOOD COUNT 11.5 10^3/uL (4.3-11.0)
[2022-04-21] MEDS: BENZOCAINE/MENTHOL (DERMOPLAST) 56 ML CAN TP PRN (11:17)
[2022-04-21] MEDS: DIBUCAINE 1% OINTMENT 30 GM TUBE TOP PRN (11:17)
--- NOTE | 2022-04-21 12:36 | Anesthesia-Regional Post-Op ---
Regional Patient Condition Mental Status: Alert, Oriented x3 Circulation: Same as Pre-Op Headache: Absent Sensation: Full Recovery Motor Block: Absent Post Op Complications Complications None Follow Up Care/Instructions Patient Instructions None needed. Anesthesia/Patient Condition Patient is doing well, no complaints, stable vital signs, no apparent adverse anesthesia problems. No complications reported per nursing. KERVIN ALMONTE CRNA Apr 21, 2022 12:36
--- NOTE | 2022-04-21 13:44 | Postpartum Progress Note ---
Note Note Day # 1 Subjective: Patient is without complaints. Ambulating, voiding. Tolerating a regular diet without nausea or vomiting. Normal lochia. Pain is well controlled with oral pain medications. Objective: Physical Exam: General - Alert and oriented, no apparent distress Abdomen - Soft, appropriately tender to palpation, non-distended, fundus firm at umbilicus Extremities - no edema, negative Siddhartha's bilaterally Assessment: PPD 1 VAVD Acute blood loss anemia Plan: Routine care. Encourage breast feeding. Encourage ambulation. Ferrous sulfate supplementation. Plan for discharge today Vitals - Labs Vital Signs - I&O Vital Signs Date Time Temp Pulse Resp B/P (MAP) Pulse Ox O2 Delivery O2 Flow Rate FiO2 04/21/22 09:00 36.7 85 18 127/68 (87) 99 Room Air 04/21/22 06:55 36.5 86 18 119/74 (89) 100 Room Air 04/21/22 00:45 36.2 89 18 109/59 (76) 98 Room Air 04/20/22 21:56 36.2 96 18 113/65 (81) 98 Room Air 04/20/22 18:45 36.6 104 18 124/81 (95) 99 Room Air Labs Laboratory Tests 04/21/22 08:35: White Blood Count 11.5H, Red Blood Count 3.12L, Hemoglobin 7.4#L, Hematocrit 24L , Mean Corpuscular Volume 78L, Mean Corpuscular Hemoglobin 24L, Mean Corpuscular Hemoglobin Concent 30L, Red Cell Distribution Width 14.9H, Platelet Count 205, Mean Platelet Volume 10.6, Immature Granulocyte % (Auto) 1, Neutrophils (%) (Auto) 82H, Lymphocytes (%) (Auto) 11L, Monocytes (%) (Auto) 5, Eosinophils (%) (Auto) 2, Basophils (%) (Auto) 0, Neutrophils # (Auto) 9.5H, Lymphocytes # (Auto) 1.3, Monocytes # (Auto) 0.5, Eosinophils # (Auto) 0.2, Basophils # (Auto) 0.0, Immature Granulocyte # (Auto) 0.1 SUSI MOHR DO Apr 21, 2022 13:44
== END 2022-04-21 14:15 | disposition home or self-care (01) | DRG 806 ==
LOC: LDRP 00:52 → WSo 00:52 → LDRP 01:30 → WSo 01:30 → LDRP 13:20
PROVIDERS: ADMIT Obstetrics & Gynecology; ATTEND Obstetrics & Gynecology
PROC: 10D07Z6 Extraction of Products of Conception, Vacuum, Via Natural or Artificial Opening (ICD-10-PCS; principal; 2022-04-20)
PROC: 0W8NXZZ Division of Female Perineum, External Approach (ICD-10-PCS; 2022-04-20)
DX: O75.89 Other specified complications of labor and delivery (principal); D62 Acute posthemorrhagic anemia; Z37.0 Single live birth; Z3A.37 37 weeks gestation of pregnancy; O90.81 Anemia of the puerperium; Z23 Encounter for immunization; Z28.310 Unvaccinated for COVID-19
CPT/HCPCS: 36415; 81000; 85025; 86850; 86900; 86901; 90686; 99212

== ENCOUNTER 2022-05-03 15:45 | Emergency (ER) | payer MEDICAID ==
[~2022-05-03] VITALS: Ht 165.5 cm; Wt 104.1 kg
[~2022-05-03 15:45] MED LIST changes: +ACHD5005 PO; +BENZ78AE5 TP; +DIBU30OI TOP; +DOCU100C37 PO; +FERR325T24 PO; +IBUP-844 PO
[2022-05-03 17:38] LABS: BASOPHILS % (AUTO) 1 % (0-10); EOSINOPHILS # (AUTO) 0.3 10^3/uL (0.0-0.3); EOSINOPHILS % (AUTO) 5 % (0-10); HEMATOCRIT 35 % (35-52); HEMOGLOBIN 10.5 g/dL (11.5-16.0); LYMPHOCYTES % (AUTO) 28 % (12-44); MEAN CORPUSCULAR HEMOGLOBIN 23 pg (25-34); MEAN CORPUSCULAR HGB CONC 30 g/dL (32-36); MEAN CORPUSCULAR VOLUME 76 fL (80-99); MEAN PLATELET VOLUME 9.5 fL (9.0-12.2); MONOCYTES # (AUTO) 0.4 10^3/uL (0.0-1.0); MONOCYTES % (AUTO) 5 % (0-12); NEUTROPHILS # (AUTO) 4.3 10^3/uL (1.8-7.8); NEUTROPHILS % (AUTO) 61 % (42-75); PLATELET COUNT 51 10^3/uL (130-400); WHITE BLOOD COUNT 7.1 10^3/uL (4.3-11.0)
--- NOTE | 2022-05-03 17:44 | ED GU-Female ---
General Chief Complaint: (<6 weeks) Stated Complaint: VAG BLEEDING POST DELIVERY Nursing Triage Note: PT STATES SHE IS 13 DAYS POST VAGINAL DELIVERY AND IS HAVING INCREASED VAGINAL BLEEDING TODAY. HAS ALSO PASSED CLOTS. STATES INTERMITTENT LOWER ABD PAIN AND CRAMPING Source: patient Exam Limitations: no limitations History of Present Illness Date Seen by Provider: May 03, 2022 Time Seen by Provider: 17:44 Initial Comments This is a 22 yo female G-1, P-1 who presented to the ER via POV with concerns of increased vaginal bleeding and clots today. She is 13 days post vaginal delivery of her daughter. Has had intermittent lower abdominal cramping, especially when she is nursing. After passing several small clots she felt somewhat dizzy. Unsure if this was related to increased bleeding or just taking her Oxycodone. Has used 2 pads today. No syncope, fever, nausea, vomiting. Allergies and Home Medications Allergies Coded Allergies: Penicillins (Verified Allergy, Unknown, 04/25/20) amoxicillin (Verified Allergy, Unknown, 04/20/22) Patient Home Medication List Home Medication List Reviewed: Yes Benzocaine/Menthol (Dermoplast Pain Relieving [place]) 20 %-0.5 % Aerosol, 56 EA TP UD PRN for PAIN- SEE INSTRUCTIONS Prescribed by: SUSI MOHR on 04/20/22 1135 Dibucaine (Dibucaine) 1 % Oint, 1 GM TOP UD PRN for PAIN- SEE INSTRUCTIONS Prescribed by: SUSI MOHR on 04/20/22 1135 Docusate Sodium (Docusate Sodium) 100 Mg Capsule, 100 MG PO BID PRN for CONSTIPATION-1ST LINE Prescribed by: SUSI MOHR on 04/20/22 1135 Ferrous Sulfate (Ferosul) 325 Mg (65 Mg Iron) Tablet, 325 MG PO DAILY Prescribed by: SUSI MOHR on 04/20/22 1135 Hydrocodone Bit/Acetaminophen (HYDROcodone/APAP 5 MG/325 MG TAB) 1 Tab Tab, 1 EA PO Q4H PRN for PAIN-MODERATE (5-7) Prescribed by: SUSI MOHR on 04/20/22 1135 Ibuprofen (Ibu) 600 Mg Tablet, 600 MG PO Q6H Prescribed by: SUSI MOHR on 04/20/22 1135 Vit No.124/Iron/FA ( Vitamin Tablet) 27 Mg Iron-800 Mcg Tablet, 1 EACH PO DAILY, (Reported) Entered as Reported by: LINDA BARTLETT on 04/02/22432 Promethazine HCl (Promethazine HCl) 50 Mg Tablet, 50 MG PO PRN, (Reported) Entered as Reported by: LINDA BARTLETT on 04/02/22432 Review of Systems Review of Systems Constitutional: see HPI Past Pixrtxj-Msfqqm-Gwwyia Hx Patient Social History Tobacco Use?: No Substance use?: No Alcohol Use?: No Immunizations Up To Date Tetanus Booster (TDap): Less than 5yrs PED Vaccines UTD: Yes Influenza Vaccine Up-to-Date: Yes; Up-to-Date Seasonal Allergies Seasonal Allergies: No Past Medical History Surgeries: Yes Cystectomy Respiratory: No Cardiac: No Neurological: Yes Seizure Disorder Reproductive Disorders: No Genitourinary: No Gastrointestinal: No Musculoskeletal: No Endocrine: No HEENT: No Cancer: No Psychosocial: Yes ADD/ADHD, Anxiety Integumentary: No Blood Disorders: No Physical Exam Vital Signs Vital Signs - First Documented 05/03/22 16:00 Temp 36.1 Pulse 68 Resp 18 B/P (MAP) 139/92 (108) Pulse Ox 99 Capillary Refill : Less Than 3 Seconds Height, Weight, BMI Height: 5'5" Weight: 160lbs. oz. 72.040411wr; 38.00 BMI Method:Estimated General Appearance: WD/WN, no apparent distress HEENT: PERRL/EOMI, normal ENT inspection, pharynx normal Neck: full range of motion, normal inspection Cardiovascular: regular rate, rhythm, no murmur Respiratory: lungs clear, normal breath sounds, no respiratory distress, no accessory muscle use Gastrointestinal: normal bowel sounds, non tender, soft Genital/Rectal: normal genital exam, normal rectal exam Pelvic: normal external exam; No lesions Extremities: normal range of motion, normal inspection Neurologic/Psychiatric: no motor/sensory deficits, alert, normal mood/affect, oriented x 3 Skin: normal color, warm/dry Progress/Results/Core Measures Suspected Sepsis SIRS Temperature: Pulse: 68 Respiratory Rate: 18 Laboratory Tests 05/03/22 05:31: White Blood Count 7.1 Blood Pressure 139 /92 Mean: 108 Laboratory Tests 05/03/22 05:31: Platelet Count 51L Results/Orders Lab Results Laboratory Tests Test 05/03/22 05:31 Range/Units White Blood Count 7.1 4.3-11.0 10^3/uL Red Blood Count 4.54 3.80-5.11 10^6/uL Hemoglobin 10.5 L 11.5-16.0 g/dL Hematocrit 35 35-52 % Mean Corpuscular Volume 76 L 80-99 fL Mean Corpuscular Hemoglobin 23 L 25-34 pg Mean Corpuscular Hemoglobin Concent 30 L 32-36 g/dL Red Cell Distribution Width 14.8 H 10.0-14.5 % Platelet Count 51 L 130-400 10^3/uL Mean Platelet Volume 9.5 9.0-12.2 fL Immature Granulocyte % (Auto) 1 % Neutrophils (%) (Auto) 61 42-75 % Lymphocytes (%) (Auto) 28 12-44 % Monocytes (%) (Auto) 5 0-12 % Eosinophils (%) (Auto) 5 0-10 % Basophils (%) (Auto) 1 0-10 % Neutrophils # (Auto) 4.3 1.8-7.8 10^3/uL Lymphocytes # (Auto) 2.0 1.0-4.0 10^3/uL Monocytes # (Auto) 0.4 0.0-1.0 10^3/uL Eosinophils # (Auto) 0.3 0.0-0.3 10^3/uL Basophils # (Auto) 0.0 0.0-0.1 10^3/uL Immature Granulocyte # (Auto) 0.1 0.0-0.1 10^3/uL My Orders Orders - MT POWERS APRN Cbc With Automated Diff (05/03/22 16:19) Ed Iv/Invasive Line Start (05/03/22 16:19) Vital Signs/I&O Capillary Refill : Less Than 3 Seconds Blood Pressure Mean: 108 Progress Note : Progress Note Hgb-7.4 when discharged from hospital after , today Hgb-10.1. States her low Hgb at discharge and her symptoms today were most concerning. Her BP and HR are stable, no evidence of hemorrhage. External episiotomy sutures intact, no drainage. Her symptoms are improved in ED. Discussed that it is normal to have some cramping a few weeks after delivery as the uterus is shrinking back down to size and nursing can stimulate contractions. Red flag and return precautions discussed. Verbalized understanding. Discharge POC reviewed and she is agreeable with plan. Departure Impression Primary Impression: bleeding Disposition: 01 HOME, SELF-CARE Condition: Improved Departure-Patient Inst. Decision time for Depature: 18:22 Referrals: NO,LOCAL PHYSICIAN (PCP/Family) Primary Care Physician Patient Instructions: Bleeding Add. Discharge Instructions: Plan: 1. Keep your follow-up with Dr. Mohr's office as scheduled next week. 2. Continue your ibuprofen 600 mg as directed for pain and discomfort. 3. If you have increased bleeding, dizziness, saturating more than 1 pad per hour return to the emergency department. 4. If you have any elevated temperature, any other new or concerning symptoms you can return to the ER. All discharge instructions reviewed with patient and/or family. Voiced understanding. MT POWERS [employer] EQU[employer]MENT TECHNICIAN May 03, 2022 17:44
[2022-05-03 18:33] VITALS: BP 130/74
== END 2022-05-03 18:33 | disposition home or self-care (01) ==
LOC: EDUNIT# 15:45 → ER 15:47
DX: O72.1 Other immediate postpartum hemorrhage (principal); Z28.310 Unvaccinated for COVID-19
CPT/HCPCS: 36415; 85025; 99282

== ENCOUNTER 2022-07-06 20:26 | Emergency (ER) | payer MEDICAID ==
[~2022-07-06] VITALS: Ht 162.5 cm; Wt 105.0 kg
[2022-07-06 20:28] VITALS: BP 154/95
--- NOTE | 2022-07-06 20:41 | ED GU-Female ---
General Chief Complaint: - Reproductive Stated Complaint: VAGINAL BLEEDING Source: patient Exam Limitations: no limitations History of Present Illness Date Seen by Provider: Jul 06, 2022 Time Seen by Provider: 20:20 Initial Comments Patient is a 22-year-old , 2-month female with Nexplanon implant presents with 11 days of vaginal bleeding and dizziness upon standing. Patient reports feeling 3 tampons in a short period of time this evening. She also reports sharp menstrual cramps. She is taking Tylenol and ibuprofen limited relief. No chest pain palpitation shortness of breath. No nausea or vomiting. No fever chills or sweats. No urinary frequency urgency or dysuria. No other acute symptoms or complaints. Timing/Duration: just prior to arrival, other Severity/Quality: other Location: other Radiation: other Sexual [place] History: other Modifying Factors: Improves With Other Associated Symptoms: other Allergies and Home Medications Allergies Coded Allergies: Penicillins (Verified Allergy, Unknown, 04/25/20) amoxicillin (Verified Allergy, Unknown, 04/20/22) Patient Home Medication List Home Medication List Reviewed: Yes Benzocaine/Menthol (Dermoplast Pain Relieving [place]) 20 %-0.5 % Aerosol, 56 EA TP UD PRN for PAIN- SEE INSTRUCTIONS Prescribed by: SUSI OMHR on 04/20/22 1135 Dibucaine (Dibucaine) 1 % Oint, 1 GM TOP UD PRN for PAIN- SEE INSTRUCTIONS Prescribed by: SUSI MOHR on 04/20/22 1135 Docusate Sodium (Docusate Sodium) 100 Mg Capsule, 100 MG PO BID PRN for CONSTIPATION-1ST LINE Prescribed by: SUSI MOHR on 04/20/22 1135 Ferrous Sulfate (Ferosul) 325 Mg (65 Mg Iron) Tablet, 325 MG PO DAILY Prescribed by: SUSI MOHR on 04/20/22 1135 Hydrocodone Bit/Acetaminophen (HYDROcodone/APAP 5 MG/325 MG TAB) 1 Tab Tab, 1 EA PO Q4H PRN for PAIN-MODERATE (5-7) Prescribed by: SUSI MOHR on 04/20/22 1135 Ibuprofen (Ibu) 600 Mg Tablet, 600 MG PO Q6H Prescribed by: SUSI MOHR on 04/20/22 1135 Vit No.124/Iron/FA ( Vitamin Tablet) 27 Mg Iron-800 Mcg Tablet, 1 EACH PO DAILY, (Reported) Entered as Reported by: LINDA BARTLETT on 04/02/22432 Promethazine HCl (Promethazine HCl) 50 Mg Tablet, 50 MG PO PRN, (Reported) Entered as Reported by: LINDA BARTLETT on 04/02/22432 Review of Systems Review of Systems Constitutional: see HPI EENTM: see HPI Respiratory: see HPI Cardiovascular: see HPI Gastrointestinal: see HPI Musculoskeletal: see HPI Skin: see HPI Psychiatric/Neurological: See HPI Endocrine: See HPI Hematologic/Lymphatic: See HPI All Other Systemes Reviewed Negative Unless Noted: No Past Hrmolai-Kmkmww-Rnuaes Hx Patient Social History Tobacco Use?: No Use of E-Cig and/or Vaping dev: Yes Substance use?: No Alcohol Use?: No Pt feels they are or have been: No Immunizations Up To Date Tetanus Booster (TDap): Less than 5yrs PED Vaccines UTD: Yes Influenza Vaccine Up-to-Date: Yes; Up-to-Date Seasonal Allergies Seasonal Allergies: No Past Medical History Surgeries: Yes Cystectomy Respiratory: No Cardiac: No Neurological: Yes Seizure Disorder Reproductive Disorders: No Genitourinary: No Gastrointestinal: No Musculoskeletal: No Endocrine: No HEENT: No Cancer: No Psychosocial: Yes ADD/ADHD, Anxiety Integumentary: No Blood Disorders: No Physical Exam Vital Signs Vital Signs - First Documented 07/06/22 20:28 Temp 37.0 Pulse 104 Resp 16 B/P (MAP) 154/95 (114) Pulse Ox 100 O2 Delivery Room Air Capillary Refill : Height, Weight, BMI Height: 5'5" Weight: 160lbs. oz. 72.475174jo; 38.00 BMI Method:Estimated General Appearance: WD/WN, no apparent distress HEENT: PERRL/EOMI, normal ENT inspection Neck: full range of motion Cardiovascular: regular rate, rhythm Respiratory: chest non-tender, lungs clear Gastrointestinal: non tender, soft Progress/Results/Core Measures Suspected Sepsis SIRS Temperature: Pulse: Respiratory Rate: Laboratory Tests 07/06/22 20:35: White Blood Count 6.2 Blood Pressure / Mean: Laboratory Tests 07/06/22 20:35: Platelet Count 331 Results/Orders Lab Results Laboratory Tests Test 07/06/22 20:35 Range/Units White Blood Count 6.2 4.3-11.0 10^3/uL Red Blood Count 5.13 H 3.80-5.11 10^6/uL Hemoglobin 10.9 L 11.5-16.0 g/dL Hematocrit 36 35-52 % Mean Corpuscular Volume 70 L 80-99 fL Mean Corpuscular Hemoglobin 21 L 25-34 pg Mean Corpuscular Hemoglobin Concent 30 L 32-36 g/dL Red Cell Distribution Width 14.2 10.0-14.5 % Platelet Count 331 130-400 10^3/uL Mean Platelet Volume 9.3 9.0-12.2 fL Immature Granulocyte % (Auto) 0 % Neutrophils (%) (Auto) 67 42-75 % Lymphocytes (%) (Auto) 26 12-44 % Monocytes (%) (Auto) 5 0-12 % Eosinophils (%) (Auto) 2 0-10 % Basophils (%) (Auto) 0 0-10 % Neutrophils # (Auto) 4.2 1.8-7.8 10^3/uL Lymphocytes # (Auto) 1.6 1.0-4.0 10^3/uL Monocytes # (Auto) 0.3 0.0-1.0 10^3/uL Eosinophils # (Auto) 0.1 0.0-0.3 10^3/uL Basophils # (Auto) 0.0 0.0-0.1 10^3/uL Immature Granulocyte # (Auto) 0.0 0.0-0.1 10^3/uL My Orders Orders - LUCI WHITTEN DO Cbc With Automated Diff (07/06/22 20:35) Basic Metabolic Panel (07/06/22 20:35) Acetaminophen Tablet (Tylenol Tablet) (07/06/22 20:45) Medications Given in ED Current Medications Medications Dose Ordered Sig/Bonnie Route Start Time Stop Time Status Last Admin Dose Admin Acetaminophen 1,000 mg ONCE ONCE PO 07/06/22 20:45 07/06/22 20:46 DC 07/06/22 20:42 1,000 MG Vital Signs/I&O 07/06/22 20:28 Temp 37.0 Pulse 104 Resp 16 B/P (MAP) 154/95 (114) Pulse Ox 100 O2 Delivery Room Air Capillary Refill : Departure Communication (Admissions) Vital signs, H&H stable. Heavy menstrual periods likely associated with first periods. Tylenol given. Recommendations are to follow-up with her [employer] next office today for further recommendations and management return precautions reviewed. Patient verbalizes understanding agreement with discharge instructions prior to departure Impression Primary Impression: Menorrhagia Disposition: 01 HOME, SELF-CARE Condition: Stable Departure-Patient Inst. Decision time for Depature: 20:58 Referrals: NO,LOCAL PHYSICIAN (PCP/Family) Primary Care Physician Patient Instructions: Heavy Periods (DC) Add. Discharge Instructions: You were evaluated emergency department for heavy menstrual bleeding 2 months months postdelivery. Blood work was obtained and shows normal red blood cell level. Please increase fluids and continue Tylenol or ibuprofen for cramping follow-up with your [employer] on Friday for further recommendations and management. Return to the ED if new or concerning symptoms. All discharge instructions reviewed with patient and/or family. Voiced understanding. LUCI WHITTEN DO Jul 06, 2022 20:41
[2022-07-06] MEDS ORDERED: ACETAMINOPHEN 500 MG TAB (TYLENOL) PO ONE (20:45)
[2022-07-06 20:52] LABS: BASOPHILS % (AUTO) 0 % (0-10); EOSINOPHILS # (AUTO) 0.1 10^3/uL (0.0-0.3); EOSINOPHILS % (AUTO) 2 % (0-10); HEMATOCRIT 36 % (35-52); HEMOGLOBIN 10.9 g/dL (11.5-16.0); LYMPHOCYTES # (AUTO) 1.6 10^3/uL (1.0-4.0); LYMPHOCYTES % (AUTO) 26 % (12-44); MEAN CORPUSCULAR HEMOGLOBIN 21 pg (25-34); MEAN CORPUSCULAR HGB CONC 30 g/dL (32-36); MEAN CORPUSCULAR VOLUME 70 fL (80-99); MEAN PLATELET VOLUME 9.3 fL (9.0-12.2); MONOCYTES # (AUTO) 0.3 10^3/uL (0.0-1.0); MONOCYTES % (AUTO) 5 % (0-12); NEUTROPHILS # (AUTO) 4.2 10^3/uL (1.8-7.8); NEUTROPHILS % (AUTO) 67 % (42-75); PLATELET COUNT 331 10^3/uL (130-400); WHITE BLOOD COUNT 6.2 10^3/uL (4.3-11.0)
[2022-07-06 21:12] LABS: CALCIUM 9.1 MG/DL (8.5-10.1); CREATININE SERUM 0.75 MG/DL (0.60-1.30)
== END 2022-07-06 21:02 | disposition home or self-care (01) ==
LOC: EDUNIT# 20:26 → ER FS 20:27
DX: N92.0 Excessive and frequent menstruation with regular cycle (principal); Z28.310 Unvaccinated for COVID-19
CPT/HCPCS: 36415; 80048; 85025; 99282

== ENCOUNTER 2023-05-03 18:17 | Emergency (ER) | payer MEDICAID ==
[~2023-05-03] VITALS: Ht 162.6 cm; Wt 102.4 kg
--- NOTE | 2023-05-03 18:33 | ED GU-Female ---
General Chief Complaint: - Reproductive Stated Complaint: FREQUENT/PAINFUL URINATION Source: patient Exam Limitations: no limitations History of Present Illness Date Seen by Provider: May 03, 2023 Time Seen by Provider: 18:21 Initial Comments 23-year-old female presents emergency department today for painful urination. Symptoms started on Friday. He also has increased urinary frequency. No hematuria. She recently found out she was . No fevers or chills. She has had some nausea. All other systems reviewed and negative except documented per HPI. Voice recognition software was used to help create this chart Allergies and Home Medications Allergies Coded Allergies: Penicillins (Verified Allergy, Unknown, 04/25/20) amoxicillin (Verified Allergy, Unknown, 04/20/22) Patient Home Medication List Home Medication List Reviewed: Yes Benzocaine/Menthol (Dermoplast Pain Relieving [place]) 20 %-0.5 % Aerosol, 56 EA TP UD PRN for PAIN- SEE INSTRUCTIONS Prescribed by: SUSI MOHR on 04/20/22 1135 Cephalexin (Cephalexin) 500 Mg Tablet, 500 MG PO BID Prescribed by: RIVERA MONTIEL MD on 05/03/231900 Cephalexin (Cephalexin) 500 Mg Tablet, 500 MG PO BID Prescribed by: RIVERA MONTIEL MD on 05/03/231913 Dibucaine (Dibucaine) 1 % Oint, 1 GM TOP UD PRN for PAIN- SEE INSTRUCTIONS Prescribed by: SUSI MOHR on 04/20/22 1135 Docusate Sodium (Docusate Sodium) 100 Mg Capsule, 100 MG PO BID PRN for CONSTIPATION-1ST LINE Prescribed by: SUSI MOHR on 04/20/22 1135 Ferrous Sulfate (Ferosul) 325 Mg (65 Mg Iron) Tablet, 325 MG PO DAILY Prescribed by: SUSI MOHR on 04/20/22 1135 Hydrocodone Bit/Acetaminophen (HYDROcodone/APAP 5 MG/325 MG TAB) 1 Tab Tab, 1 EA PO Q4H PRN for PAIN-MODERATE (5-7) Prescribed by: SUSI MOHR on 04/20/22 1135 Ibuprofen (Ibu) 600 Mg Tablet, 600 MG PO Q6H Prescribed by: SUSI MOHR on 04/20/22 1135 Vit No.124/Iron/FA ( Vitamin Tablet) 27 Mg Iron-800 Mcg Tablet, 1 EACH PO DAILY, (Reported) Entered as Reported by: LINDA BARTLETT on 04/02/22432 Promethazine HCl (Promethazine HCl) 50 Mg Tablet, 50 MG PO PRN, (Reported) Entered as Reported by: LINDA BARTLETT on 04/02/22432 Review of Systems Review of Systems Constitutional: see HPI Past Ltmkyoz-Ftbgmw-Rxlnbs Hx Patient Social History Tobacco Use?: No Use of E-Cig and/or Vaping dev: No Substance use?: No Alcohol Use?: No Immunizations Up To Date Tetanus Booster (TDap): Less than 5yrs PED Vaccines UTD: Yes Seasonal Allergies Seasonal Allergies: No Past Medical History Surgeries: Yes Cystectomy Respiratory: No Cardiac: No Neurological: Yes Seizure Disorder Reproductive Disorders: No Genitourinary: No Gastrointestinal: No Musculoskeletal: No Endocrine: No HEENT: No Cancer: No Psychosocial: Yes ADD/ADHD, Anxiety Integumentary: No Blood Disorders: No Physical Exam Vital Signs Vital Signs - First Documented 05/03/23 05/03/23 18:34 19:10 Temp 37.1 Pulse 102 Resp 18 B/P (MAP) 138/91 (107) Pulse Ox 100 O2 Delivery Room Air Capillary Refill : Height, Weight, BMI Height: 5'5" Weight: 160lbs. oz. 72.475361bj; 39.00 BMI Method:Estimated General Appearance: WD/WN, no apparent distress Cardiovascular: regular rate, rhythm, no murmur Respiratory: chest non-tender, normal breath sounds, no respiratory distress, no accessory muscle use Gastrointestinal: normal bowel sounds, non tender, soft Extremities: normal inspection Neurologic/Psychiatric: alert Skin: normal color, warm/dry Progress/Results/Core Measures Suspected Sepsis SIRS Temperature: Pulse: Respiratory Rate: Blood Pressure / Mean: Results/Orders Lab Results Laboratory Tests Test 05/03/23 18:30 Range/Units Urine Color YELLOW Urine Clarity CLEAR Urine pH 6.0 5-[address] 1.020 1.016-1.022 Urine Protein NEGATIVE NEGATIVE Urine Glucose (UA) NEGATIVE NEGATIVE Urine Ketones NEGATIVE NEGATIVE Urine Nitrite NEGATIVE NEGATIVE Urine Bilirubin NEGATIVE NEGATIVE Urine Urobilinogen 0.2 < = 1.0 MG/DL Urine Leukocyte Esterase TRACE H NEGATIVE Urine RBC (Auto) NEGATIVE NEGATIVE Urine RBC NONE /HPF Urine WBC 10-25 H /HPF Urine Squamous Epithelial Cells >50 H /HPF Urine Crystals NONE /LPF Urine Bacteria FEW H /HPF Urine Casts NONE /LPF Urine Mucus MODERATE H /LPF Urine Culture Indicated NO My Orders Orders - RIVERA MONTIEL DO Ua Culture If Indicated (05/03/23 18:24) Cephalexin Capsule (Cephalexin Capsule) (05/03/23 19:00) Cephalexin Capsule (Cephalexin Capsule) (05/03/23 18:59) Vital Signs/I&O 05/03/23 05/03/23 18:34 19:10 Temp 37.1 37.0 Pulse 102 75 Resp 18 16 B/P (MAP) 138/91 (107) 129/85 Pulse Ox 100 O2 Delivery Room Air Room Air Capillary Refill : Departure Communication (Admissions) Urinalysis shows possible UTI, especially given the patient's symptoms however this is a dirty catch. Given that she is we will go ahead and treat her conservatively with Keflex. Discharged home in stable condition with close follow-up. Impression Primary Impression: Urinary tract infection Qualified Codes: N30.01 - Acute cystitis with hematuria Disposition: HOME, SELF-CARE Condition: Stable Departure-Patient Inst. Referrals: RANDOLPH SCHWAB MD (PCP) Primary Care Physician Patient Instructions: Urinary Tract Infection, Adult ED Add. Discharge Instructions: Take the antibiotics as prescribed until they are gone. Increase your fluids at home and rest. Return to the emergency department for any severe concerns. All discharge instructions reviewed with patient and/or family. Voiced understanding. Scripts Cephalexin (Cephalexin) 500 Mg Tablet 500 MG PO BID for 5 Days, #10 TAB Prov: RIVERA MONTIEL DO 05/03/23 Cephalexin (Cephalexin) 500 Mg Tablet 500 MG PO BID for 5 Days, #10 TAB Prov: RIVERA MONTIEL DO 05/03/23 RIVERA MONTIEL DO May 03, 2023 18:33
[2023-05-03 18:36] LABS: BILIRUBIN,URINE NEGATIVE (NEGATIVE); CLARITY,URINE CLEAR; COLOR,URINE YELLOW; GLUCOSE, URINE (UA) NEGATIVE (NEGATIVE); KETONES,URINE NEGATIVE (NEGATIVE); LEUKOCYTE ESTERASE ,URINE TRACE (NEGATIVE); NITRITE,URINE NEGATIVE (NEGATIVE); PROTEIN,URINE NEGATIVE (NEGATIVE)
[2023-05-03 18:39] LABS: BACTERIA,URINE FEW /HPF; SQUAMOUS EPITHELIAL CELL,UR >50 /HPF
[2023-05-03] MEDS ORDERED: CEPHALEXIN 250 MG CAPSULE PO ONE (18:59)
[2023-05-03] MEDS ORDERED: CEPHALEXIN 250 MG CAPSULE PO SCH (19:00)
[2023-05-03] MEDS ORDERED: CEPH500T PO ×2 (19:01→19:14)
[2023-05-03 19:10] VITALS: BP 129/85
== END 2023-05-03 19:10 | disposition home or self-care (01) ==
LOC: EDUNIT# 18:17 → ER FS 18:19
DX: N39.0 Urinary tract infection, site not specified (principal); Z98.890 Other specified postprocedural states; Z88.0 Allergy status to penicillin
CPT/HCPCS: 81000; 99283